=== PATIENT | female | born 1965 | race Caucasian/White ===

== ENCOUNTER → 2023-10-22 16:08 | Outpatient (REF) | payer BC, SELFPAY ==
[2023-10-22 17:35] LABS: % Basophils 1.3 % (0-2); % Eosinophils 2.1 % (0-6); % Immature Granulocytes 0.6 % (0-0.5); % Lymphocytes 15.2 % (20.5-51.1); % Monocytes 12.9 % (1.7-9.3); % Neutrophils 67.9 % (42.2-75.2); Absolute Basophils 0.1 10^3/uL (0-0.2); Absolute Eosinophils 0.1 10^3/uL (0-0.7); Absolute Monocytes 0.9 10^3/uL (0.1-0.6); Absolute Neutrophils 4.6 10^3/uL (1.4-6.5); Hemoglobin 12.3 g/dL (12.0-16.0); Mean Corp Hgb Conc. 33.2 g/dL (33.0-37.0); Mean Corpuscular Volume 87.3 fL (81.0-99.0); Mean Platelet Volume 10.9 fL (7.4-10.4); Nucleated Red Blood Cells % 0 %; Platelet Count 299 10^3/uL (130-400); Red Blood Cell Count 4.24 10^6/uL (4.20-5.40); Red Cell Dist. Width 13.7 % (11.5-14.5); White Blood Cell Count 6.7 10^3/uL (4.8-10.8)
[2023-10-22 17:50] LABS: ALT (SGPT) 18 U/L (0-35); AST (SGOT) 24 U/L (14-36); Alkaline Phosphatase 74 U/L (38-126); Blood Urea Nitrogen 21 mg/dl (7-17); Calcium 10.2 mg/dl (8.4-10.2); Carbon Dioxide 29 mmol/L (22-30); Chloride 98 mmol/L (98-107); Glucose 96 mg/dl (70-99); Potassium 4.5 mmol/L (3.5-5.1); Sodium 138 mmol/L (135-145); Total Bilirubin 0.8 mg/dl (0.2-1.3); Total Protein 7.7 g/dl (6.3-8.2); eGFR > 60.00
[2023-10-25 01:39] LABS: IgG 949 mg/dl (700-1600)
== END ==
LOC: REG 16:08
PROVIDERS: ATTENDING PHYSICIAN Nurse Practitioner Adult Health; FAMILY PHYSICIAN Family Medicine
DX: G35 Multiple sclerosis (principal)
CPT/HCPCS: 36415; 80053; 82784; 85025

== ENCOUNTER 2023-11-13 00:43 | Inpatient (IN) | payer BC, SELFPAY ==
[2023-11-12 21:59] VITALS: BMI 51.9
[2023-11-12 22:10] VITALS: BP 161/80
[2023-11-12 22:44] LABS: % Eosinophils 1.7 % (0-6); % Immature Granulocytes 0.4 % (0-0.5); % Lymphocytes 10.3 % (20.5-51.1); % Monocytes 10.5 % (1.7-9.3); % Neutrophils 76.1 % (42.2-75.2); Absolute Basophils 0.1 10^3/uL (0-0.2); Absolute Eosinophils 0.1 10^3/uL (0-0.7); Absolute Lymphocytes 0.9 10^3/uL (1.2-3.4); Absolute Monocytes 0.9 10^3/uL (0.1-0.6); Absolute Neutrophils 6.3 10^3/uL (1.4-6.5); Hematocrit 37.5 % (37.0-47.0); Hemoglobin 12.6 g/dL (12.0-16.0); Mean Corp Hgb Conc. 33.6 g/dL (33.0-37.0); Mean Corpuscular Hgb 29.2 pg (27.0-31.0); Mean Corpuscular Volume 86.8 fL (81.0-99.0); Mean Platelet Volume 11.1 fL (7.4-10.4); Nucleated Red Blood Cells % 0 %; Platelet Count 267 10^3/uL (130-400); Red Blood Cell Count 4.32 10^6/uL (4.20-5.40); Red Cell Dist. Width 13.3 % (11.5-14.5); White Blood Cell Count 8.2 10^3/uL (4.8-10.8)
[2023-11-12 22:45] LABS: Urine Albumin Negative (Neg - Trace); Urine Bilirubin Negative (Negative); Urine Character Clear (Clear); Urine Color Yellow; Urine Glucose Negative (Negative); Urine Ketone Negative (Negative); Urine Leukocyte Negative (Negative); Urine Nitrite Negative (Negative); Urine Occult Blood 1+ (Negative); Urine Specific Gravity 1.015 (<1.030); Urine Urobilinogen Negative (Neg - 1+); Urine pH 6.5 (5.0-9.0)
--- NOTE | 2023-11-12 22:56 | ED.GENMED ---
History of Present Illness
General
Chief Complaint: Musculo-Skeletal Complaint
Source: patient
Exam Limitations: none
Time Seen by Provider: 11/12/23 22:32
Travel History
Have you had any contact with someone who has COVID-19?: No
Do you have any symptoms of coronavirus? Fever > 100 degrees, chills, cough, shortness of breath, sore throat, loss of taste or smell, muscle aches, or headache?: No
History of Present Illness
History of Present Illness:
This is a 58 year old female that comes in with c/o MS flare. States that for the past few days she has had weakness in her legs. Then today she was in the BR for 2 hours as she was unable to walk or get up. States that she couldn't stand. Patient
called her neurologist (Dr. Abbott) and was told to come to the ER. States that she is also having this right eye black spot like a Gnat. Denies any vision loss. States that she has dizziness occasionally and has had some palpitations. States that
she also rolled her left ankle last Wednesday and was concerned about injury. Denies any fever, chills, chest pain, SOB, abd pain, nausea, vomiting diarrhea, headache, urinary burning.
Past History
Past History
ED Past Medical History: HTN, Other (Multiple sclerosis (relapsing-remitting), anemia, Neuropathy, Hemorrhoids, UTI, Anemia, Numbness arms and leg, ) and Other (LEEP x 2, Pregnancies x 5)
ED Past Surgical History: , Gynecological (ovarian surgeries x 3, Cervix Surgery) and Orthopedic (R shoulder surgery, left ankle fracture with surgery)
Social History
Tobacco: Non-smoker
Alcohol: None
Drug: None
Personal:
Living: with family
Employment: Employed
Family History
Family History: Other (reviewed and Noncontributory)
Review of Systems
Review of Systems
All Other Systems: ROS reviewed and negative except as documented in HPI and ROS
Constitutional: Reports no symptoms; Denies fever or chills
EENT: Reports no symptoms
Respiratory: Reports no symptoms; Denies cough or trouble breathing
Cardiac: Reports no symptoms; Denies chest pain
ABD/GI: Reports no symptoms; Denies abdominal pain, nausea, vomiting or diarrhea
: Reports no symptoms; Denies dysuria, frequency or urgency
Musculoskeletal: Reports joint pain (Left ankle)
Skin: Reports no symptoms
Neurological: Reports weakness (Bilateral lower legs)
Psychiatric: Reports no symptoms
Phy Exam
General Physical Exam
General Presentation: no apparent distress
General age: appears stated age
General Skin: warm and dry
General Habitus: normal
General Mental: alert
General Hydration: appears well hydrated
ENT Exam
ENT Exam: TM's normal, pharynx normal and neck supple
Eye Exam
Eye Exam: EOMI and visual stallworth normal
Cardiovascular Exam
Cardiovascular Exam: regular rate/rhythm, no edema, no murmur and normal peripheral pulses
Pulmonary Exam
Pulmonary Exam: lungs clear, no respiratory distress, no rales, chest non tender, no crackles, no rhonchi, no wheezing and no cough
Gastrointestinal Exam
Gastrointestinal Exam: normal bowel sounds, non tender, soft, no organomegaly, no pulsatile mass and non distended
Musculoskeletal Exam
Musculoskeletal Exam: edema (Feet and lower leg edema +1 pitting) and other (Push pulls equal, Unable to lift legs)
Skin Exam
Skin Exam: normal color, warm/dry, no rash and no petechia
Psychiatric Exam
Psychiatric Exam: normal mood/affect
Course
Orders/Labs/Results
Orders:
Orders
11/12/23 22:38
CMP [Comprehensive Metabolic Panel] Urgent
Complete Blood Count/With Diff Urgent
Urinalysis Reflex To Culture Urgent
Date Specimen was Collected: 11/12/23
Time Specimen was Collected: 22:36
Urine Microscopic Reflex Cult Urgent
11/12/23 22:55
Dexamethasone Sod Phosphate [Decadron] 20 mg IV NOW STA
11/12/23 23:01
Ankle, left 3 view CR [CR Ankle - Left Min 3 Views ] Urgent
Comment:
Reason For Exam: Pain rolled ankle
11/12/23 23:48
COVID-19 Antigen Stat
Source: Nasal Swab
Influenza A+B Rapid Molecular Stat
FRANCISCO Source: Nasal Swab
Specimen Description:
11/12/23 23:49
CR Chest - 2 Views Stat
Comment:
Reason For Exam: SOB
Abnormal Lab Results
11/12/23
22:38
MPV 11.1 H fL
(7.4-10.4)
Absolute Lymphs (auto) 0.9 L 10^3/uL
(1.2-3.4)
Absolute Monos (auto) 0.9 H 10^3/uL
(0.1-0.6)
Neutrophils % 76.1 H %
(42.2-75.2)
Lymphocytes % 10.3 L %
(20.5-51.1)
Monocytes % 10.5 H %
(1.7-9.3)
BUN 22 H mg/dl
(7-17)
Glucose 109 H mg/dl
(70-99)
Calcium 10.4 H mg/dl
(8.4-10.2)
Ur Occult Blood Reflex 1+ A
(Negative)
Urine RBC 3-6 A /HPF
(0-2)
Urine Bacteria (Reflex) Few A
(Negative)
11/12/23 22:38
11/12/23 22:38
Dehydration. Glucose nonfasting. Calcium slightly elevated. Urine negative for infection.
Vital Signs
Initial and Last Documented VS:
Initial Vital Signs
Temp
97.9 F
11/12/23 21:59
Last Documented Vital Signs
Temp Pulse Resp BP Pulse Ox
97.9 F 78 20 163/80 97
11/12/23 21:59 11/12/23 23:00 11/12/23 23:00 11/12/23 23:00 11/12/23 23:00
MDM/Problems Addressed
Differential Diagnosis Includes:
MS flare,
MDM/Problems Addressed:
This is a 58 year old female that comes in with c/o bilateral leg weakness. States that this started a few day ago and then today she was in the BR for 2 hours as she was unable to get up or walk. States that she called her Neurologist and was told
to come to the ER. States that she also has this black spot in the right eye that is like a Gnat flying around
Will get labs and Admit. Will give IV steroids
Had explained to patient that she would be admitted due to her weakness. Hospitalist notified.
Chronic conditions affecting care:
MS
Acute Exacerbation and/or Progression of Chronic Illness:
MS
*Radiology
Radiology exam reviewed: preliminary read by ED provider (Left ankle- Negative for fracture, Hardware noted)
*Pulse Oximetry
Patient hypoxic: no
*EKG
Interpreted by ED Provider?: NA
Rate: EKG- N/A
*Brewing Director Interpretation
Rate: normal
Heart Rate: 89
Rhythm: sinus
*Critical Care Note
Total Time (30-74mins, 75-104mins- exclusive of procedures): Not Applicable
ED Attending Note
-
Portions of this chart may have been created with voice recognition software.� Occasional wrong word or��sound alike� substitutions may have occurred due to the inherent limitations of voice recognition software.
Discharge Plan
Departure
Patient Disposition: Admit
Date of Disposition: 11/12/23
Time of Disposition: 23:25
Admit to: Med/Surg
Presentation/result/management discussed w/ accepting MD/DO: Hospitalist
Patient with high blood pressure during this ER visit?: Yes
Condition: Good
Covid-19: Not Applicable
Discharge Problem:
Weakness, Multiple sclerosis exacerbation
Prescriptions:
No Action
dalfampridine [Ampyra] 10 MG tablet extended release 12 hr
10 mg PO BID
Ocrevus 300 MG/10 ML solution
600 mg IV [id number]
nifedipine 30 MG tablet extended release
30 mg PO DAILY
ascorbic acid (vitamin C) [Vitamin C] 500 MG tablet
500 mg PO HS
cholecalciferol (vitamin D3) 1,000 UNITS tablet
5,000 units PO DAILY
gabapentin 300 mg Capsule
300 mg PO HS
labetalol 300 mg Tablet
300 mg PO BID
sennosides [Senna Laxative] 8.6 mg Tablet
17.2 mg PO HS Qty: 10 0RF
tramadol 50 mg Tablet
25 mg PO [id number] PRN (Reason: mod to severe pain) Qty: 10 0RF
acetaminophen [Pain Relief ES (acetaminophen)] 500 mg Tablet
1,000 mg PO TID Qty: 10 0RF
docusate sodium 100 mg Capsule
100 mg PO BID Qty: 10 0RF
ferrous sulfate [iron] 325 mg (65 mg iron) Tablet
325 mg PO DAILY
baclofen 10 mg tablet
10 mg PO PRN PRN (Reason: as needed)
Interventions
Interventions:
*Risk Screen - Suicide Last Done: 11/12/23 21:59
*General Assessment Last Done: 11/12/23 21:59
*Neglect/Abuse Screening Last Done: 11/12/23 21:59
ED- Fall Risk Assessment Last Done: 11/12/23 22:06
ED-Musculoskeletal Assessment Last Done: 11/12/23 22:04
Discharge Date and Time
Print Language: HUNGARIAN
[2023-11-12 23:00] VITALS: BP 163/80
[2023-11-12 23:03] LABS: ALT (SGPT) 20 U/L (0-35); AST (SGOT) 26 U/L (14-36); Alkaline Phosphatase 66 U/L (38-126); Blood Urea Nitrogen 22 mg/dl (7-17); Calcium 10.4 mg/dl (8.4-10.2); Carbon Dioxide 28 mmol/L (22-30); Chloride 102 mmol/L (98-107); Estimated Creatinine Clearance 89 ml/min; Glucose 109 mg/dl (70-99); Potassium 4.5 mmol/L (3.5-5.1); Sodium 137 mmol/L (135-145); Total Bilirubin 0.6 mg/dl (0.2-1.3); Total Protein 7.9 g/dl (6.3-8.2); eGFR > 60.00
[2023-11-12 23:05] LABS: Urine Bacteria Few (Negative); Urine Squamous Cell 0-2 /LPF (Few); Urine White Cell 0-2 /HPF (0-5)
[2023-11-12] MEDS: DECADRON 20 MG IV (23:09)
--- NOTE | 2023-11-12 23:27 | HPS.HSE ---
Family Physician
-
Family Physician:
Chief Complaint
-
Weakness x 1week
History of Present Illness
58yo F with PMH Relapsing Remitting MS (chronic mild right leg>left leg weakness), Neuropathy, HTN, AWILDA, Obesity who presents to ER for weakness complaint. She reports ongoing weakness from baseline over the last 1 week. States she normally
ambulates with walker but has been more dependent on it. In lats 2 months she has had 4 falls. On wednesday she fell and hit her left ankle (hx left ankle fx s/p repair a few years ago noted). Today she was so weak she could not get up from the
bathroom prompting evaluation. Also reports a black spot over 1/4 of her right eye. Denies history of internuclear ophthalmoplegia. Had a video conference with her Neurologist Dr. Abbott but did not report these findings to her. Denies F/C,
Dizziness/LH, CP, palps, wheezing, cough, sob, abd pain, n/v/d/c, dysuria, calf or leg pain. Denies recent med changes.
ER course: Pt presents with BP 163/80, other V.S.S. Basic labs relatively unremarkable. Ca 10.4. UA few bact 0-2 WBC. Ankle XR on personal review with hardware in place, no acute fx/dislocation (official read pending). S/P 20mg IV dexamethasone in
ER.
Medical History
Past Medical History
Past Medical History: Reports Other
Additional Past Medical History:
Relapsing-Remitting MS
Hypertension
Obesity
AWILDA
Chronic Anemia
Past Surgical History: Reports Other
Additional Past Surgical History:
Tubal Ligation
Right Shoulder Surgery
Colposcopy
Exploratory Laparoscopy
Left Ankle ORIF
Social History
Tobacco: Non-smoker
Alcohol: None
Drug: None
Family History
Family History: Other (Father: CAD. Denies known MS or other immunological family history. )
Allergies / Home Medications
Allergies reflects when Allergies were last updated in [facility].
Home Medications with original date entered in [facility]
Allergy/Medication List:
Allergies
Allergy/AdvReac Type Severity Reaction Status Date / Time
morphine Allergy Nausea / Verified 03/15/23 18:51
Vomiting
oxycodone [From Percocet] Allergy Nausea / Verified 03/15/23 18:51
Vomiting
Home Medications
dalfampridine 10 mg tablet,extended release,12 hr (Ampyra) 10 mg PO BID MS 05/26/21
ocrelizumab 30 mg/mL intravenous solution (Ocrevus) 600 mg IV [id number] MS 05/26/21
nifedipine 30 mg tablet,extended release 30 mg PO DAILY Heart disease/condition 12/16/21
ascorbic acid (vitamin C) 500 mg tablet (Vitamin C) 500 mg PO HS Supplement 06/30/22
cholecalciferol (vitamin D3) 25 mcg (1,000 unit) tablet 5,000 units PO DAILY Supplement 06/30/22
gabapentin 300 mg capsule 300 mg PO HS Neurological Condition 03/16/23
labetalol 300 mg tablet 300 mg PO BID Blood Pressure 03/16/23
baclofen 10 mg tablet 10 mg PO PRN PRN as needed 11/12/23
ferrous sulfate 325 mg (65 mg iron) tablet (iron) 325 mg PO DAILY 11/12/23
acetaminophen 500 mg tablet (Pain Relief Extra Strength (acetaminophen)) 1,000 mg PO TID PRN Pain 11/13/23
Review of Systems
-
A 12 point ROS was completed and negative except as noted: Yes
Physical Exam
Vital Signs
Vital Signs
Temp Pulse Resp BP Pulse Ox
97.9 F 78 20 163/80 97
11/12/23 21:59 11/12/23 23:00 11/12/23 23:00 11/12/23 23:00 11/12/23 23:00
Physical Exam
General: Well Developed, Well Nourished and No Apparent Distress
HEENT: NormoCephalic, Moist mucous membranes and Atraumatic
Respiratory: Clear
Cardiac: S1/S2 and Regular Rhythm; No Murmur or Rub
GI: Soft, Non Tender, Non Distended, Normal Bowel Sounds and Other (obese); No Organomegaly
Rectal: Deferred by Provider
Musculoskeletal: No Clubbing, No Cyanosis and No Edema
Skin: No Rash
Neuro: Awake, Alert, Oriented, AO x 3 and Other (MSK UE 5/5 throughout. MSK RLE 2/5. MSK LLE 3/5. Sensation grossly intact, mildly diminished (chronic) in LE)
Hematologic/Lymphatic: No Lymphadenopathy
Psych: Calm
Laboratory Results
-
11/12/23 22:38
11/12/23 22:38
Laboratory Results
Total Bilirubin 0.6 mg/dl (0.2-1.3) 11/12/23 22:38
AST 26 U/L (14-36) 11/12/23 22:38
ALT 20 U/L (0-35) 11/12/23 22:38
Alkaline Phosphatase 66 U/L (38-126) 11/12/23 22:38
Data Reviewed
-
Diagnostic Radiology: Image Personally Visualized and interpreted
Lab Data: Labs Reviewed by me
Old Records: Reviewed
Impression/Plan
-
B/L Leg Weakness / Suspected MS Flare
- Pt presents with ambulatory dysfunction, falls, generalized weakness (acute on Chronic R>L leg weakness increased) and Right Eye Visual Field Deficit
- No organic etiologies identified at this time. UA few bact, 0-2 WBC. Will obtain CXR and COVID/Flu for completeness\\
- Basic labs unremarkable. Check TSH/B12 levels.
- Suspect right occular complaint may be 2/[address]. Will obtain CT brain stat for completeness.
- Defer further imaging including MRIs to neuro recs
- Q4h neurochecks.
- S/P 20mg IV dexmethasone in ER. Discussed with neurology. Recommending 1000mg Solumedrol daily in AM
- Currently on Ocrevus Q6mo last received 08/27 and Ampyra 20mg daily
- Neuroconsult / PT / OT
Left Ankle Pain
- Personal review XR without obvious fx/dislocation - follow official read
- Continue prn tylenol
- PT/OT
HTN
- BP 163/80. Late for tonight labetalol. Resume home labetalol, nifedipine. Trend for improvement.
Spasticity
- Continue home baclofen and gabapentin
Morbid Obesity due to excess calories and poor exercise capacity
- Encourage healthy diet and activity as tolerated with goal of weight loss / stability.
Diet: Regular
DVT PPx: Lovenox
Code Status: Full
[2023-11-13] VITALS (9 sets, daily range): BP systolic 131–173; BP diastolic 77–96; BMI 51.1; BMI 51.0
[2023-11-13 00:34] LABS: COVID-19 Antigen Negative (Negative)
[2023-11-13] MEDS: TYLENOL 1000 MG PO ×4 (02:30→22:08)
[2023-11-13] MEDS: NEURONTIN 300 MG PO ×2 (02:30→22:08)
[2023-11-13] MEDS: TRANDATE 300 MG PO ×3 (02:30→22:09)
--- NOTE | 2023-11-13 02:45 | PTCARENOTE ---
Patient arrived from ED via stretcher, slid to bed from stretcher with assist of 3 person. Patient alert and oriented, c/o pain/spasms to legs and significant weakness which she states is what ultimately brought her in from home. Patient arrived
with purewick in place and is requesting to keep at this time - changed and maintained this shift. Patient appears to be incontinent of large amounts of urine with urgency. initiated on crate maker #5 - NSR with BBBC present, HR 70s. BPs
elevated since admission. Call simons within reach, patient verbalizes proper use of call simons if needed. Will monitor.
--- NOTE | 2023-11-13 07:14 | CON.NEURO4 ---
Consultation - Neurology 4
-
CONSULTING PHYSICIAN: Eusebio Paulino
REFERRING PHYSICIAN: ER
DICTATED BY: Eusebio Paulino
DATE/TIME OF REQUEST: 11/13/23
DATE/TIME OF CONSULTATION: 11/13/23
Reason for Consultation: Lower extremity weakness and worsening gait, history of multiple sclerosis
History of Present Illness:
Patient is a 58-year-old woman with a past medical history of obesity, relapsing remitting multiple sclerosis presented to hospital after finding herself in the bathroom not able to get up as well as a couple weeks of worsening ambulatory
dysfunction and multiple falls over the past 2 months. Had some minor ankle pain mostly on the left and had x-ray of this in the ER.
Patient reports no recent illnesses of fever sore throat cough rhinitis or congestion no abdominal pain nausea vomiting or diarrhea. She does urinate frequently and so often that this sometimes can lead her to need to urinate every couple of hours
at night but no dysuria recently. She is planning on urology visit in the outpatient setting.
Patient has been on ocrelizumab for control of multiple sclerosis in the outpatient setting with no complications with results of this.
Does report some stressors recently given her around 4 years ago at this time and sleep deprivation with the urinary issues. She does have a significant headache today but no photophobia or nausea. No changes in medications
recently.
At baseline she usually ambulates with a walker and for longer distances will use a wheelchair. Notes that over the past 2 months she has had falls than usual.
Past Medical History: Relapsing remitting multiple sclerosis, obesity, hypertension, anemia
Surgical History: C section, tubal ligation, right shoulder surgery, left ankle ORIF, colposcopy, exploratory laparoscopy
Family History:Reviewed and non-contributory
Social History: Patient lives at home with family and is a , no tobacco or alcohol use no recreational drugs
Review of Symptoms:
Patient denies any fever, headache, chest pain, shortness of breath, GI or symptoms.
Physical Exam:
Middle-aged woman no apparent distress well-nourished well-groomed no signs of head or neck trauma, neck supple no masses full range of motion heart rate regular breathing unlabored abdomen is obese soft nontender, lower extremity edema is present
bilaterally with no rash
Neurologic Examination:
Mental status is unremarkable
Cranial nerve examination shows normal cranial nerves II through XII
Motor examination shows normal bulk and tone no abnormal movements or rigidity or parkinsonism, 5/5 shoulder abduction arm flexion bilaterally. Distal ankle strength for dorsiflexion plantarflexion 5/5 bilaterally. Some limitation in effort due to
obesity and edema of the legs bilaterally, leg strength testing shows 3/5 effort bilaterally of hip flexion, 4/5 hip abduction bilaterally.
Neuro Imaging:
CT head non contrast unremarkable
Impressions
Worsening ambulatory dysfunction on top of significant baseline amatory dysfunction. History relapsing relating to multiple sclerosis on Ocrelizumab, involvement in both brain and spine. Suspect this is acute on chronic gait dysfunction or a
pseudoflare from stressors and sleep deprivation, significant headache, but new flare of multiple sclerosis is on the differential and should be evaluated for. No strong evidence of serious new metabolic abnormality or infection.
Recommendations:
1. Give 1 dose 1000 mg methylprednisolone once this morning
2. Check MRI of the lumbar spine and thoracic spine with and without contrast
3. Continue gabapentin and Dalfimpiridine
4. Tylenol 1000 mg TID for headache
5. Continue PRN baclofen
6. PT/OT evaluations
7. Supportive care o therwise
Will follow
Discussed patient care with: Patient
[2023-11-13] MEDS: LOVENOX 60 MG SC ×2 (08:02→22:09)
[2023-11-13] MEDS: VITAMIN D3 (cholecalciferol) 25 MCG PO (08:03)
[2023-11-13] MEDS: PROCARDIA XL (EXTENDED RELEASE) 30 MG PO (08:03)
[2023-11-13] MEDS: SOLU-MEDROL 258 MG IV (08:03)
[2023-11-13] MEDS: FEOSOL 325 MG PO (08:03)
[2023-11-13 09:02] LABS: % Basophils 0.3 % (0-2); % Eosinophils 0.2 % (0-6); % Immature Granulocytes 0.6 % (0-0.5); % Monocytes 0.9 % (1.7-9.3); Absolute Lymphocytes 0.3 10^3/uL (1.2-3.4); Absolute Monocytes 0.1 10^3/uL (0.1-0.6); Absolute Neutrophils 6.2 10^3/uL (1.4-6.5); Hematocrit 38.6 % (37.0-47.0); Hemoglobin 13.2 g/dL (12.0-16.0); Mean Corp Hgb Conc. 34.2 g/dL (33.0-37.0); Mean Corpuscular Hgb 28.9 pg (27.0-31.0); Mean Corpuscular Volume 84.6 fL (81.0-99.0); Nucleated Red Blood Cells % 0 %; Red Blood Cell Count 4.56 10^6/uL (4.20-5.40); Red Cell Dist. Width 13.2 % (11.5-14.5); White Blood Cell Count 6.6 10^3/uL (4.8-10.8)
[2023-11-13] MEDS: TYLENOL PO (09:31)
[2023-11-13 11:02] LABS: Blood Urea Nitrogen 19 mg/dl (7-17); Calcium 10.3 mg/dl (8.4-10.2); Carbon Dioxide 20 mmol/L (22-30); Chloride 106 mmol/L (98-107); Estimated Creatinine Clearance > 125 ml/min; Glucose 152 mg/dl (70-99); Potassium 4.8 mmol/L (3.5-5.1); Sodium 136 mmol/L (135-145); eGFR > 60.00
[2023-11-13 11:09] LABS: TSH 0.22 uIU/ml (0.47-4.68)
[2023-11-13 11:28] LABS: Vitamin B12 500 pg/ml (239-931)
--- NOTE | 2023-11-13 12:38 | CM ---
Initial assessment was completed at bedside.
Pt is a 58yr old female admitted with an MS Flare.
Pt at baseline lives with her brother and mother in a multi level home with a first floor bed/bath.
Per pt. she is mostly independent at baseline with mobility and ADLs. when she is having a 'bad day' her children that live close by come and provide assistance where needed.
Pt uses a walker within the home, but has a wheelchair and an electric scooter for when out of the house. pt also has and uses a shower chair with arms.
Pt has uses [facility] and has been to [facility] and [facility] in the past.
Per pt, she was about to make a call this upcoming Wednesday to her Neurologist for a [facility] referral for PT/OT before coming to the hospital instead.
PCP; Nemesio Watters
Pharm; [facility]
PLAN; Home with [facility]
--- NOTE | 2023-11-13 13:39 | W.PN.HOSP.TC ---
Today's Communication/Plan
-
see bold
Assessment / Plan
Assessment / Plan
Gen: NAD, AAOx3.
Eyes: EOMI, PERRLA, no scleral icterus.
Neck: supple.
CV: RRR, +S1/S2, no m/r/g.
Resp: CTAB, no rales, wheezes, or rhonchi.
Abd: +BS, soft, NT, ND
Skin: No rashes.
Neuro: CN 2-12 intact
Psych: Normal mood and affect.
L ankle Xray: No acute abnormalities. Postoperative changes consistent with prior repair of bimalleolar fracture
CT brain: There are no acute intracranial abnormalities. There is diffuse cortical atrophy with nonspecific white matter changes.
CXR: No active cardiopulmonary disease.
B/L Leg Weakness due to suspected MS Flare:
-presented with ambulatory dysfunction, falls, generalized weakness (acute on Chronic R>L leg weakness increased) and Right Eye Visual Field Deficit
-COVID/flu NEG
-appreciate neuro
-check MRI L and T spines
-s/p 20mg IV Decardon in ER followed by 1g IV solumedrol today
-Currently on Ocrevus Q6mo last received 08/27 and Ampyra 20mg daily
Other problems:
Left Ankle Pain: XR withouf fx, PT/OT
Essential HTN: cont cont BB/CCB
Spasticity: Continue home baclofen and gabapentin
Morbid Obesity due to excess calories: Encourage weight loss. Affects all aspects of care
FULL/Lovenox
Anticipated Discharge: 24 - 48 hours
Subjective/Interval History
-
Date of Service: November 13, 2023
No new complaints.
Objective Data
-
Labs:
Laboratory Results
11/13/23 11/13/23
08:18 08:19
WBC 6.6
Hgb 13.2
Hct 38.6
Plt Count
Sodium 136
Potassium 4.8
Chloride 106
Carbon Dioxide 20 L
BUN 19 H
Creatinine 0.5 L
Glucose 152 H
Calcium 10.3 H
Vital Signs:
Vital Signs
Temp Pulse Resp BP Pulse Ox
97.7 F 102 18 149/89 95
11/13/23 11:00 11/13/23 11:00 11/13/23 11:00 11/13/23 11:00 11/13/23 11:00
I&O
11/12/23 11/13/23 11/14/23
06:59 06:59 06:59
Intake Total 480 / 480
Output Total 1000 / 1000
Balance -520 / -520
[2023-11-13] MEDS: VITAMIN C 500 MG PO (22:08)
[2023-11-14] VITALS (8 sets, daily range): BP systolic 141–184; BP diastolic 78–95; PULSE 92; BMI 51.9
--- NOTE | 2023-11-14 07:54 | W.PN.NEURO.1 ---
Today's Communication / Plan
-
-Would give 1 further additional day of IV steroids today with no further steroids after today
-Physical therapy evaluation, patient interested in home PT if possible
-Continue her existing as needed baclofen, scheduled dalfampridin, gabapentin
-Patient plans to seek outpatient urology evaluation
-Consider compression stockings, conservative measures for mild lower extremity edema, encouraged weight loss
-No further MRI imaging felt warranted
Will follow as needed, signing off call with questions and concerns
Neuro Assessment/Plan
Assessment
58-year-old woman with a past no history of relapsing remitting multiple sclerosis with lesions involving the brain and the spine maintained on oculus Mab presents to hospital with not being able to get up from her bathroom and had had worsening
gait function over the past couple weeks with increased amount of falls over the past 2 months.
No obvious severe metabolic derangements on lab
Patient did have some stressors as her of her occurred around 4 years ago at this day
Has also had significant sleep deprivation with some frequent urination
Additionally had a significant headache yesterday none migrainous which is now improved
Would deem this a pseudo flare of multiple sclerosis given no new enhancing lesions on the spine MRI, probably multifactorial due to acute on chronic gait dysfunction and obesity, lower extremity edema, as well as mild metabolic (sleep deprivation)
and psychological stressors
Subjective/Objective
Subjective Data
Date of Service: November 14, 2023
No acute events, somewhat better strength in the legs, headache has improved to minor amount, no speech difficulty, numbness, or hand or arm weakness
Objective Data
Vital Signs
Temp Pulse Resp BP Pulse Ox
97.9 F 87 20 164/87 97
11/14/23 07:00 11/14/23 07:00 11/14/23 07:00 11/14/23 07:00 11/14/23 07:00
Lab Results
11/13/23 08:19
11/13/23 08:18
Sodium 136 mmol/L (135-145) 11/13/23 08:18
Potassium 4.8 mmol/L (3.5-5.1) 11/13/23 08:18
BUN 19 mg/dl (7-17) H 11/13/23 08:18
Glucose 152 mg/dl (70-99) H 11/13/23 08:18
Calcium 10.3 mg/dl (8.4-10.2) H 11/13/23 08:18
Vitamin B12 500 pg/ml (239-931) 11/13/23 08:18
Patient Allergies
morphine Allergy (Verified 03/15/23 18:51)
Nausea / Vomiting
oxycodone [From Percocet] Allergy (Verified 03/15/23 18:51)
Nausea / Vomiting
Review of Systems
-
History Source: Patient
All other systems: Reviewed and negative
Constitutional: No Symptoms
EENT: No Symptoms Reported
Respiratory: No Symptoms
Cardiac: No Symptoms
Abdomen/GI: No Symptoms
Genitourinary: No Symptoms
Musculoskeletal: No Symptoms
Skin: No Symptoms
Neuro: Headache and Weakness
Endocrine: No Symptoms
Hematologic / Lymphatic: No Symptoms
Allergy / Immunology: No Symptoms
Physical Exam
-
General: No Apparent Distress and Obese
Eyes: No Ptosis
HEENT: Normocephalic
Neck: No Bruits Bilaterally
Respiratory: Clear to Auscultation
Cardiac: Regular Rhythm
GI: Normal Bowel Sounds
Skin: Unremarkable
Extremities: No Clubbing
Psych: Intact Judgement/Insight
Extended Neurological Exam
Attention Span & Concentration: Awake, Alert and Interactive
Memory: Able to Recall
Tremor: Hand Tremor Absent
Involuntary Movement: None
Speech: Quality Unremarkable and Quantity Unremarkable; Negative Expressive Aphasia, Receptive Aphasia or Dysarthric
Cranial Nerve II: Left Eye: Pupillary Reactivity Unremarkable, Pupillary Size Unremarkable and Visual Thorpe Intact
Cranial Nerve II: Right Eye: Pupillary Reactivity Unremarkable, Pupillary Size Unremarkable and Visual Thorpe Intact
Cranial Nerve VII: Facial Symmetry: Normal Facial Symmetry
Muscle Strength, Overall: Other (Leg strength hip flexion mildly improved 4-/5 hip flexion briefly, ankle dorsiflexion/plantarflexion 5/5 bilalterally)
Muscle Bulk & Tone: Bulk Unremarkable
Pronator Drift: No Drift in Upper Extremities
Babinski Sign: Absent Bilaterally
Data Reviewed
-
MRI Thoracic Spine: Report Reviewed and Image Reviewed
MRI Lumbar Spine: Report Reviewed and Image Reviewed
Labs: Report Reviewed
[2023-11-14] MEDS: TRANDATE 300 MG PO ×2 (09:27→20:06)
[2023-11-14] MEDS: FEOSOL 325 MG PO (09:27)
[2023-11-14] MEDS: PROCARDIA XL (EXTENDED RELEASE) 30 MG PO (09:27)
[2023-11-14] MEDS: LOVENOX 60 MG SC ×2 (09:27→20:06)
[2023-11-14] MEDS: VITAMIN D3 (cholecalciferol) 25 MCG PO (09:27)
[2023-11-14] MEDS: SOLU-MEDROL 258 MG IV (09:36)
--- NOTE | 2023-11-14 12:15 | W.PN.HOSP.TC ---
Today's Communication/Plan
-
Physiatry eval
Steroids today
PT OT
Rehab
Assessment / Plan
Assessment / Plan
58-year-old female with history of relapsing remitting multiple sclerosis presented to the hospital with worsening ambulatory dysfunction and multiple falls in the past 2 months. She denies any fever, diarrhea, URI.
L ankle Xray: No acute abnormalities. Postoperative changes consistent with prior repair of bimalleolar fracture
CT brain: There are no acute intracranial abnormalities. There is diffuse cortical atrophy with nonspecific white matter changes.
CXR: No active cardiopulmonary disease.
MRI of the thoracic and Lumbar spine-Slightly progressed nonenhancing demyelinating lesions scattered throughout the thoracic spinal cord.Severe spinal canal stenosis at L4-5, slightly progressed.Trace bilateral pleural effusions.
Partially visualized left thyroid lobe nodule measures up to 1.1 cm. Consider outpatient workup with dedicated thyroid ultrasound if not previously performed.
On examination CVS: S1-S2 normal
Chest: CTA B/L
Abdomen: Soft, NT / Bowel sounds present
Extremities: No edema, normal pulses
normal cranial nerves. Proximal muscle weakness noted,
#B/L Leg Weakness due to suspected MS Flare:
-presented with ambulatory dysfunction, falls, generalized weakness (acute on Chronic R>L leg weakness increased) and Right Eye Visual Field Deficit
-COVID/flu NEG
-appreciate neuro
-check MRI L and T spines
-s/p 20mg IV Decadron in ER followed by 1g IV Solumedrol 11/13/23 and 11/14/23
-Currently on Ocrevus Q6mo last received 08/27
-Continue Gabapentin and Ampyra 20mg daily
-Continue Baclofen
-PT/OT
-Physiatry eval for Acute rehab recommendations.(Consulted
#Depression- Pt requests Psyche eval.
She is not suicidal or homicidal.
Feels no purpose to life
#Thyroid nodule- OP USS
Pt aware
#Left Ankle Pain: XR without fx, PT/OT
#Essential HTN: cont cont BB/CCB
#Spasticity: Continue home baclofen and gabapentin
#Severe spinal canal stenosis
#Morbid Obesity due to excess calories: Encourage weight loss.
#FULL CODE
#Lovenox for DVT Prophylaxis
Anticipated Discharge: Within 24 hours
Subjective/Interval History
-
Date of Service: November 14, 2023
Objective Data
-
Vital Signs:
Vital Signs
Temp Pulse Resp BP Pulse Ox
97.8 F 84 18 164/91 95
11/14/23 11:00 11/14/23 11:00 11/14/23 11:00 11/14/23 11:00 11/14/23 11:00
I&O
11/13/23 11/14/23 11/15/23
06:59 06:59 06:59
Intake Total 480 / 480 1620 / 1620
Output Total 1000 / 1000 1700 / 1700
Balance -520 / -520 -80 / -80
--- NOTE | 2023-11-14 14:10 | CS.PSYCHR ---
Consult Summary - Psychiatry
-
Psychiatry consult for depression. 58 yo female with long history of MS admitted 11/11 for weakness. Patient admits to worsening depressive symptoms including amotivation, feelings of guilt, hopelessness and loss of purpose, difficulty sleeping and
increased anger/frustration with herself. She denies active or passive suicidal ideations. She denies manic or psychotic history. She denies substance abuse. Stressors include her health condition and difficulty doing things she used to be able to.
She also continues to struggle with the loss of her 4 years ago. She states she does not want to take psychiatric medications at this time though education on this option was provided. We also discussed options for nonpharmacological
interventions including individual/group therapy which she is open to. She states she is technologically savvy and can find and online program. We also discussed option for higher levels of care and how to pursue them if condition worsens in the
future and she needs additional support
MSE- obese, sitting in chair, cooperative, good eye contact, fluent speech. depressed mood and congruent affect. denies SI. Denies HI/AVH. no delusions. fully oriented. fair insight/judgement
PMH- MS diagnosed 1995, Hypertension, Obesity, AWILDA, Chronic Anemia
Social history- lives with brother and mom. has 4 adult children and 2 grandchildren. , then remarried. second 4 years ago
Past psych history- denies past mental health treatment
Family history- suspects undiagnosed mental health issues mother; son with mental health treatment for unspecified conditions
A/P- 58 yo female with unspecified depressive disorder. Does not want psychiatric medications at this time. agreeable to pursuing individual therapy on her own once discharged. aware of option for crisis/higher levels of care if needed in the
future. Psychiatry will sign off. please contact team with further questions or concerns.
[2023-11-14] MEDS: TYLENOL 1000 MG PO (20:20)
[2023-11-14] MEDS: NEURONTIN 300 MG PO (21:25)
[2023-11-14] MEDS: VITAMIN C 500 MG PO (21:25)
[2023-11-15] VITALS (7 sets, daily range): BP systolic 116–171; BP diastolic 68–96; BMI 51.8
--- NOTE | 2023-11-15 06:29 | W.PN.HOSP.TC ---
Today's Communication/Plan
-
PMR eval
monitor Calcium
follow up AM PTH Vit D levels
cont PT/OT
Assessment / Plan
Assessment / Plan
Physical Exam
General: No acute distress, appears comfortable at this time.
CVS: S1-S2 normal
Chest: CTA B/L
Abdomen: Soft, NT / Bowel sounds present
Extremities: No edema, normal pulses
Neuro: AOx3
58-year-old female with history of relapsing remitting multiple sclerosis presented to the hospital with worsening ambulatory dysfunction and multiple falls in the past 2 months. She denies any fever, diarrhea, URI.
L ankle Xray: No acute abnormalities. Postoperative changes consistent with prior repair of bimalleolar fracture
CT brain: There are no acute intracranial abnormalities. There is diffuse cortical atrophy with nonspecific white matter changes.
CXR: No active cardiopulmonary disease.
MRI of the thoracic and Lumbar spine-Slightly progressed nonenhancing demyelinating lesions scattered throughout the thoracic spinal cord.Severe spinal canal stenosis at L4-5, slightly progressed.Trace bilateral pleural effusions.
Partially visualized left thyroid lobe nodule measures up to 1.1 cm. Consider outpatient workup with dedicated thyroid ultrasound if not previously performed.
#B/L Leg Weakness due to suspected MS Flare:
-presented with ambulatory dysfunction, falls, generalized weakness (acute on Chronic R>L leg weakness increased) and Right Eye Visual Field Deficit
-COVID/flu NEG
-appreciate neuro eval
-MRI L and T spines appreciated slightly progressed scattered demyelinating lesions, severe spinal stenosis L4-L5, partial visualization Left Thyroid lobe nodule 1.1 cm
-s/p 20mg IV Decadron in ER followed by 1g IV Solumedrol 11/13/23 and 11/14/23, currently off steroids as per neuro recc's
-Currently on Ocrevus Q6mo last received 08/27
-Continue Gabapentin and Ampyra 20mg daily
-Continue Baclofen
-PT/OT
-Physiatry eval for Acute rehab recommendations. Consulted, pending eval
Mild Hypercalcemia
#Depression
denies suicidal or homicidal ideation
Psych eval, per pt's request, appreciated
#Thyroid nodule- OP USS
Pt aware
#Left Ankle Pain: XR without fx, PT/OT
#Essential HTN: cont cont BB/CCB
#Spasticity: Continue home baclofen and gabapentin
#Severe spinal canal stenosis
#Morbid Obesity due to excess calories: Encourage weight loss.
#FULL CODE
#Lovenox for DVT Prophylaxis
I spent a total of 50 minutes with the patient or on the floor. More than 50% of this time involved counseling and coordination of care.
Anticipated Discharge: 24 - 48 hours
Subjective/Interval History
-
Date of Service: November 15, 2023
Seen and examined at bedside in no acute distress sitting up comfortably in bed. Son Kraig present during evaluation. Denies new acute issues at this time.
Objective Data
-
Labs:
Laboratory Results
11/15/23
06:04
Sodium Pending
Potassium Pending
Chloride Pending
Carbon Dioxide Pending
BUN Pending
Creatinine Pending
Glucose Pending
Calcium Pending
Vital Signs:
Vital Signs
Temp Pulse Resp BP Pulse Ox
98.3 F 93 16 154/90 95
11/15/23 02:54 11/15/23 02:54 11/15/23 02:54 11/15/23 03:00 11/15/23 02:54
I&O
11/13/23 11/14/23 11/15/23
06:59 06:59 06:59
Intake Total 480 / 480 1620 / 1620 1860 / 1860
Output Total 1000 / 1000 1700 / 1700 400 / 400
Balance -520 / -520 -80 / -80 1460 / 1460
[2023-11-15 06:52] LABS: Blood Urea Nitrogen 22 mg/dl (7-17); Calcium 10.5 mg/dl (8.4-10.2); Carbon Dioxide 23 mmol/L (22-30); Chloride 107 mmol/L (98-107); Estimated Creatinine Clearance > 125 ml/min; Glucose 133 mg/dl (70-99); Potassium 4.9 mmol/L (3.5-5.1); Sodium 141 mmol/L (135-145); eGFR > 60.00
[2023-11-15] MEDS: VITAMIN D3 (cholecalciferol) 25 MCG PO (07:49)
[2023-11-15] MEDS: TRANDATE 300 MG PO ×2 (07:49→20:09)
[2023-11-15] MEDS: FEOSOL 325 MG PO (07:50)
[2023-11-15] MEDS: PROCARDIA XL (EXTENDED RELEASE) 30 MG PO (07:50)
[2023-11-15] MEDS: LOVENOX 60 MG SC ×2 (08:03→20:10)
[2023-11-15] MEDS: TYLENOL 1000 MG PO (08:03)
[2023-11-15 16:36] LABS: Glucose - Point of Care 151 mg/dl (70-99)
[2023-11-15 18:46] LABS: TSH Reflex To Free T4 0.14 uIU/ml (0.47-4.68)
[2023-11-15 19:19] LABS: Free T4 1.21 ng/dl (0.78-2.19)
[2023-11-15] MEDS: NEURONTIN 300 MG PO (21:23)
[2023-11-15] MEDS: VITAMIN C 500 MG PO (21:23)
[2023-11-16] VITALS (7 sets, daily range): BP systolic 127–158; BP diastolic 68–92; PULSE 87; O2SAT 97; BMI 51.7
[2023-11-16 06:40] LABS: Hematocrit 36.8 % (37.0-47.0); Hemoglobin 12.1 g/dL (12.0-16.0); Mean Corp Hgb Conc. 32.9 g/dL (33.0-37.0); Mean Corpuscular Hgb 29.1 pg (27.0-31.0); Mean Corpuscular Volume 88.5 fL (81.0-99.0); Mean Platelet Volume 10.5 fL (7.4-10.4); Platelet Count 241 10^3/uL (130-400); Red Blood Cell Count 4.16 10^6/uL (4.20-5.40); Red Cell Dist. Width 14.2 % (11.5-14.5); White Blood Cell Count 9.9 10^3/uL (4.8-10.8)
[2023-11-16 07:02] LABS: Blood Urea Nitrogen 22 mg/dl (7-17); Calcium 9.7 mg/dl (8.4-10.2); Carbon Dioxide 24 mmol/L (22-30); Chloride 109 mmol/L (98-107); Estimated Creatinine Clearance 114 ml/min; Glucose 87 mg/dl (70-99); Magnesium 2.1 mg/dl (1.6-2.3); Phosphorus 3.8 mg/dl (2.5-4.5); Potassium 4.5 mmol/L (3.5-5.1); Sodium 138 mmol/L (135-145); eGFR > 60.00
[2023-11-16 07:31] LABS: Vitamin D, 25-OH*** 67.6 ng/mL (30-80)
--- NOTE | 2023-11-16 07:57 | CON.MD ---
Documented by User: Daphne Contreras PA-C 11/17/23 09:11
Consultation - Medical
-
Referring Provider: Anthony Salamanca
Chief Complaint: Ambulatory dysfunction
History of Present Illness: 58-year-old right-hand dominant female with PMH (Relapsing remitting multiple sclerosis, AWILDA, neuropathy, hypertension, anemia, bilateral carpal tunnel syndrome, left ankle fracture, morbid obesity) presented to
[facility] on 11/12/2023 with report of 1 week history of increased muscle weakness and difficulty walking. She reports 4 falls in the past 2 months. Normally ambulates with walker but has been more dependent on it. On wednesday, she fell
and hit her left ankle with h/o ORIF. She was so weak she could not get up from the bathroom prompting evaluation. Also reports a black spot over 1/4 of her right eye. Denies history of internuclear ophthalmoplegia. Weakness worse on the right lower
extremity than the left. She also has generalized worsening weakness and left ankle pain.
Thoracic MRI
Slightly progressed nonenhancing demyelinating lesions scattered throughout the thoracic spinal cord. Severe spinal canal stenosis at L4-5, slightly progressed. Trace bilateral pleural effusions.Partially visualized left thyroid lobe nodule measures
up to 1.1 cm. Consider outpatient workup with dedicated thyroid ultrasound if not previously performed.
Lumbar MRI
Slightly progressed nonenhancing demyelinating lesions scattered throughout the thoracic spinal cord. Severe spinal canal stenosis at L4-5, slightly progressed.
CT of Head
There are no acute intracranial abnormalities.
There is diffuse cortical atrophy with nonspecific white matter changes as described above.
Xray of Ankle
No acute abnormalities.
Postoperative changes consistent with prior repair of bimalleolar fracture
Past Medical History: Relapsing remitting multiple sclerosis, possible lupus, hypertension, anemia, bilateral carpal tunnel syndrome, left ankle fracture, morbid obesity
Procedure History: section, exploratory laparotomy December 2018, left shoulder surgery, cervical LEEP surgery, tubal ligation, left ankle ORIF
Family History: CAD
Social History:
Functional Level Premorbidly:�Modified�Independent with all activities. Has rolling walker and electric wheelchair.
Functional Level Currently:�Max A ADL's, Dependent toileting and lower extremity care, min assist bed mobility, ambulated 25 feet due to limited standing tolerance with rolling walker at supervision.
Tobacco:�Denies
Alcohol:�Denies
Drug use:�Denies
Lives with: Mother and brother
24-hour assistance available: No
Number of floors: First floor set up with bedroom and bathroom.
# steps to enter: 2 to get to Ramp
Driving: No due to leg weakness
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
Allergies:
Allergy/AdvReac Type Severity Reaction Status Date / Time
morphine Allergy Nausea / Verified 03/15/23 18:51
Vomiting
oxycodone [From Percocet] Allergy Nausea / Verified 03/15/23 18:51
Vomiting
Review of Systems:
Constitutional: (x) abNormal _general fatigue
Eye: (x) Normal _
Ear/Nose/Throat: (x) Normal _
Respiratory: (x) Normal _
Cardiovascular: (x) Normal _
Gastrointestinal: (x) Normal _
Genitourinary: (x) Normal _
Musculoskeletal: (x) abNormal _spasms, left ankle pain
Integumentary: (x) Normal _
Neurologic: (x) abNormal _decreased sensation in her hands
Psychiatric: (x) abNormal _ depression
Hematologic/Lymphatic: (x) Normal _
Allergic/Immunologic: (x) Normal _
Medications
Active Current Visit Medication List
Category Date Time Status
Acetaminophen [Tylenol] Med 11/14/23 08:12 Active
1,000 mg PO Q6HPRN PRN
Ascorbic Acid [Vitamin C] Med 11/13/23 22:00 Active
500 mg PO HS
Baclofen [Lioresal] Med 11/13/23 02:20 Active
10 mg PO PRN PRN
Bisacodyl [Dulcolax] Med 11/13/23 02:06 Active
10 mg RECTAL [id number] PRN
Cholecalciferol (Vitamin D3) [VITAMIN D3 ( Med 11/13/23 08:00 Active
cholecalciferol)]
25 mcg PO DAILY
Docusate W/Senna [Senokot-S] Med 11/13/23 02:06 Active
1 tablet PO BIDPRN PRN
Enoxaparin Sodium [Lovenox] Med 11/13/23 08:00 Active
60 mg SC BID
Ferrous Sulfate [Feosol] Med 11/13/23 08:00 Active
325 mg PO DAILY
Flush (0.9% Sodium Chloride) [Flush (Nss)] Med 11/13/23 03:00 Active
See Dose Instructions IV PER PROTOCOL
Gabapentin [Neurontin] Med 11/13/23 02:06 Active
300 mg PO HS
Labetalol [Trandate] Med 11/13/23 02:06 Active
300 mg PO BID
NIFEdipine EXTENDED RELEASE [Procardia Xl (Extended Med 11/13/23 08:00 Active
Release)]
30 mg PO DAILY
Polyethylene Glycol Powder [Miralax] Med 11/13/23 02:06 Active
17 grams PO DAILYPRN PRN
dalfampridine [Ampyra] Med 11/13/23 02:06 Pending
See Dose Instructions PO BID
:
Vitals:
Temp Pulse Resp BP Pulse Ox
98.0 F 79 18 152/81 97
11/16/23 07:00 11/16/23 07:00 11/16/23 07:00 11/16/23 07:00 11/16/23 07:00
Height 5 ft 2 in
Actual Weight 128.14 kg
Body Mass Index (BMI) 51.7
Physical Exam:
General Appearance/Observation: Well-developed obese female sitting in bed in no apparent distress.
Mood/Affect: Appropriate
Integumentary/Operative Site:
�� Pressure Ulcer: absent over heels
Eyes: Conjunctiva/Lids: normal�Pupils: pupils equal round and reactive to light and Accommodation Visual field cut: deficit on right
Ears/Nose/Throat: oral mucosa moist, �lips/Teeth/Gums: normal
Neck:muscle spasm, no tenderness.
Cardiovascular: Heart: regular, no murmur
Pulses: dorsalis pedis 1+ bilaterally
Respiratory: Respiratory Effort/Chest Expansion: normal�Auscultation: Clear to auscultation bilaterally
Gastrointestinal: abdomen not tender, no distension, obese, normal abdominal bowel sounds
Genitourinary: No Archuleta
Extremities:�Edema: bilaterally legs/feet �Cyanosis: None�Trophic�changes: None
Neurology Exam:
Orientation: Alert, Oriented to self, Time, Place
Comprehension: Intact
Two step command: Intact
Cranial Nerves:
�� CNII:�Pupillary light reflex: Intact���
�� CN III, IV, : Extraocular muscles: Intact���
� � CN V:�Facial Sensation�at�Forehead: Intact,�Maxilla: Intact,�Mandible: Intact
�� CN VII:�Facial movement: Symmetric
�� CN VIII:�Hearing: Normal
�� CN IX/X:�Speech & swallow: Normal,�Position of Uvula: Midline
�� CN XI:�Shoulder shrug: Symmetric
�� CN XII:�Tongue protrusion: Midline
Sensory:
�� Light touch: Impaired over bilateral hands and legs
�� Clonus: None
�� Javi: Negative bilaterally
Musculoskeletal:
Motor: (Manual muscle scale 0-5)
Muscle SA EF WE EE FF FA HF KE DF EHL PF
Right� � 5 � 4 4 4 1 2 1 � 3
Left � 5 � 4 4 1+ 3- 2 � 2
Tone: Normal in all extremities
\\
Range of Motion: Passively within normal limits in all extremities limited by body habitus
Lab Results
Labs
WBC 9.9 10^3/uL (4.8-10.8) 11/16/23 06:21
RBC 4.16 10^6/uL (4.20-5.40) L 11/16/23 06:21
Hgb 12.1 g/dL (12.0-16.0) 11/16/23 06:21
Hct 36.8 % (37.0-47.0) L 11/16/23 06:21
MCV 88.5 fL (81.0-99.0) 11/16/23 06:21
MCH 29.1 pg (27.0-31.0) 11/16/23 06:21
MCHC 32.9 g/dL (33.0-37.0) L 11/16/23 06:21
RDW 14.2 % (11.5-14.5) 11/16/23 06:21
Plt Count 241 10^3/uL (130-400) 11/16/23 06:21
MPV 10.5 fL (7.4-10.4) H 11/16/23 06:21
Abs Immat Gran (auto) 0.0 10^3/uL (0-0.05) 11/13/23 08:19
Absolute Neuts (auto) 6.2 10^3/uL (1.4-6.5) 11/13/23 08:19
Absolute Lymphs (auto) 0.3 10^3/uL (1.2-3.4) L 11/13/23 08:19
Absolute Monos (auto) 0.1 10^3/uL (0.1-0.6) 11/13/23 08:19
Absolute Eos (auto) 0.0 10^3/uL (0-0.7) 11/13/23 08:19
Absolute Basos (auto) 0.0 10^3/uL (0-0.2) 11/13/23 08:19
Immature Gran % 0.6 % (0-0.5) H 11/13/23 08:19
Neutrophils % 94.0 % (42.2-75.2) H 11/13/23 08:19
Lymphocytes % 4.0 % (20.5-51.1) L 11/13/23 08:19
Monocytes % 0.9 % (1.7-9.3) L 11/13/23 08:19
Eosinophils % 0.2 % (0-6) 11/13/23 08:19
Basophils % 0.3 % (0-2) 11/13/23 08:19
Nucleated RBC % 0 % 11/13/23 08:19
Sodium 138 mmol/L (135-145) 11/16/23 06:21
Potassium 4.5 mmol/L (3.5-5.1) 11/16/23 06:21
Chloride 109 mmol/L (98-107) H 11/16/23 06:21
Carbon Dioxide 24 mmol/L (22-30) 11/16/23 06:21
BUN 22 mg/dl (7-17) H 11/16/23 06:21
Creatinine 0.7 mg/dL (0.6-1.0) 11/16/23 06:21
Estimated Creat Clear 114 ml/min 11/16/23 06:21
eGFR > 60.00 11/16/23 06:21
Glucose 87 mg/dl (70-99) 11/16/23 06:21
Calcium 9.7 mg/dl (8.4-10.2) 11/16/23 06:21
Phosphorus 3.8 mg/dl (2.5-4.5) 11/16/23 06:21
Magnesium 2.1 mg/dl (1.6-2.3) 11/16/23 06:21
Total Bilirubin 0.6 mg/dl (0.2-1.3) 11/12/23 22:38
AST 26 U/L (14-36) 11/12/23 22:38
ALT 20 U/L (0-35) 11/12/23 22:38
Alkaline Phosphatase 66 U/L (38-126) 11/12/23 22:38
Total Protein 7.9 g/dl (6.3-8.2) 11/12/23 22:38
Albumin 5.0 g/dl (3.5-5.0) 11/12/23 22:38
Vitamin B12 500 pg/ml (239-931) 11/13/23 08:18
Vitamin D 25-Hydroxy 67.6 ng/mL (30-80) 11/16/23 06:21
TSH 0.22 uIU/ml (0.47-4.68) L 11/13/23 08:18
TSH (Reflex) 0.14 uIU/ml (0.47-4.68) L 11/15/23 06:04
Free T4 1.21 ng/dl (0.78-2.19) 11/15/23 06:04
Urine Color Yellow 11/12/23 22:38
Urine Clarity Clear (Clear) 11/12/23 22:38
Urine pH 6.5 (5.0-9.0) 11/12/23 22:38
Ur Specific Jennings 1.015 (<1.030) 11/12/23 22:38
Urine Ketones Negative (Negative) 11/12/23 22:38
Ur Occult Blood Reflex 1+ (Negative) A 11/12/23 22:38
Urine Nitrite (Reflex) Negative (Negative) 11/12/23 22:38
Urine Bilirubin Negative (Negative) 11/12/23 22:38
Urine Urobilinogen Negative (Neg - 1+) 11/12/23 22:38
Leukocyte Esterase Rfl Negative (Negative) 11/12/23 22:38
Urine RBC 3-6 /HPF (0-2) A 11/12/23 22:38
Urine WBC (Reflex) 0-2 /HPF (0-5) 11/12/23 22:38
Ur Squamous Epith Cells 0-2 /LPF (Few) 11/12/23 22:38
Urine Bacteria (Reflex) Few (Negative) A 11/12/23 22:38
Urine Glucose Negative (Negative) 11/12/23 22:38
Urine Albumin (Reflex) Negative (Neg - Trace) 11/12/23 22:38
SARS-CoV-2 Antigen Negative (Negative) 11/13/23 00:03
POC Glucose 151 mg/dl (70-99) H 11/15/23 16:34
�
Diagnostic Results: as per HPI
Assessment
58-year-old right-handed female with PMH (relapsing remitting multiple sclerosis, possible lupus, hypertension, anemia) with 11/14/2023 exacerbation of multiple sclerosis with worsening legs weakness resulting in multiple falls with ADL and
ambulatory dysfunction.
Plan
PT/OT to increase independence with ADLs, improve balance, coordination, endurance, strength, mobility, community reintegration, decreased burden of care on others and family education.
Ambulatory dysfunction: Would benefit from PT/OT.�Needs to pace herself. Significant fatigue makes her at higher risk for falling and more difficult for recovery. Could consider bracing for her ankles but would require double metal uprights which
would increase the weight of her legs significantly.�
MS: Neurology deems this a pseudo flare of multiple sclerosis given no new enhancing lesions on the spine MRI, probably multifactorial due to acute on chronic gait dysfunction and obesity, lower extremity edema, as well as mild metabolic (sleep
deprivation) and psychological stressors. Cont Ampyra 10 mg extended release twice daily. Getting Baclofen 10 mg PRN. Maybe TID to help with spasms. Vitamin D. Completed IV steroids.
Right Eye Visual Field Deficit started Sep 15- Improved- Outpt Ophthalmology follow up recommended
Neuropathic pain: gabapentin 300 at bedtime.
Anemia: Ferrous sulfate 325 mg daily. HGB 12.1
HTN: nifedipine ER 30 mg daily and labetalol 300 mg twice daily
RAFAELA: Bun 22, creatinine 0.7. Encourage PO Hydration.
Left ankle pain- XR without fx, cont PT/OT
Bowel: Senokot�S 1 tablet twice daily as needed, MiraLAX 17 g as needed, Dulcolax 10 mg rectal every 48 hours as needed.
Bladder: Monitor for urinary retention, persistent chronic frequency
DVT Prophylaxis: Mechanical and Lovenox 60 mg twice daily
Pulmonary: Incentive spirometry
Morbid obesity: Continue to christian counselor patient about diet adjustments to control obesity. Body habitus and increased force to move body and extremities causes further difficulty with functional tasks.
Safety: Continue to reinforce assistance with all transfers.
Code Status:� Full code
Functional and Medical Goals:�Modified Independent with ADL�s, ambulation, transfers
Discharge Destination:�She could benefit from a short-term acute inpatient rehabilitation program.
Summary of recommendations:
Discharge Destination: She could benefit from a short-term acute inpatient rehabilitation program for PT/OT to increase independence with ADLs, improve balance, coordination, endurance, strength, mobility, community reintegration, decreased burden
of care on others and family education.
Ambulatory dysfunction: multifactorial due to acute on chronic gait dysfunction and obesity, lower extremity edema, with pseudo flare of multiple sclerosis. Would benefit from PT/OT.�Needs to pace herself. Significant fatigue makes her at higher
risk for falling and more difficult for recovery. Could consider bracing for her ankles
MS: Getting Baclofen 10 mg HS prn, may have trial of TID to help spasms.Cont Ampyra 10 mg extended release twice daily.
Neuropathic pain: gabapentin 300mg HS
Leukocytosis: likely steroid related, not present on admission.
HTN: nifedipine and labetalol
Bladder: Monitor for urinary retention, persistent chronic frequency
DVT Prophylaxis: Mechanical and Lovenox
Pulmonary: Incentive spirometry
Morbid obesity: Continue to christian counselor patient about diet adjustments to control obesity. Body habitus and increased force to move body and extremities causes further difficulty with functional tasks.
Safety: Continue to reinforce assistance with all transfers.
Thank you for allowing me to care for your patient. Please contact me with any questions or concerns.
This note was dictated using a voice recognition system. Please excuse any typographical errors from unhairing inspector. If you believe there are any discrepancies, please notify our office.

Documented by User: Avila Scott MD 11/17/23 09:33
Consultation - Medical
-
Referring Provider: Anthony Salamanca
Chief Complaint: Ambulatory dysfunction
History of Present Illness: 58-year-old right-hand dominant female with PMH (Relapsing remitting multiple sclerosis, AWILDA, neuropathy, hypertension, anemia, bilateral carpal tunnel syndrome, left ankle fracture, morbid obesity) presented to
[facility] on 11/12/2023 with report of 1 week history of increased muscle weakness and difficulty walking. She reports 4 falls in the past 2 months. Normally ambulates with walker but has been more dependent on it. On wednesday, she fell
and hit her left ankle with h/o ORIF. She was so weak she could not get up from the bathroom prompting evaluation. Also reports a black spot over 1/4 of her right eye. Denies history of internuclear ophthalmoplegia. Weakness worse on the right lower
extremity than the left. She also has generalized worsening weakness and left ankle pain.
Thoracic MRI
Slightly progressed nonenhancing demyelinating lesions scattered throughout the thoracic spinal cord. Severe spinal canal stenosis at L4-5, slightly progressed. Trace bilateral pleural effusions.Partially visualized left thyroid lobe nodule measures
up to 1.1 cm. Consider outpatient workup with dedicated thyroid ultrasound if not previously performed.
Lumbar MRI
Slightly progressed nonenhancing demyelinating lesions scattered throughout the thoracic spinal cord. Severe spinal canal stenosis at L4-5, slightly progressed.
CT of Head
There are no acute intracranial abnormalities.
There is diffuse cortical atrophy with nonspecific white matter changes as described above.
Xray of Ankle
No acute abnormalities.
Postoperative changes consistent with prior repair of bimalleolar fracture
Past Medical History: Relapsing remitting multiple sclerosis, possible lupus, hypertension, anemia, bilateral carpal tunnel syndrome, left ankle fracture, morbid obesity
Procedure History: section, exploratory laparotomy December 2018, left shoulder surgery, cervical LEEP surgery, tubal ligation, left ankle ORIF
Family History: CAD
Social History:
Functional Level Premorbidly:�Modified�Independent with all activities. Has rolling walker for use in the house and electric wheelchair. For community mobility
Functional Level Currently:�Max A ADL's, Dependent toileting and lower extremity care, min assist bed mobility, ambulated 25 feet due to limited standing tolerance with rolling walker at supervision.
Tobacco:�Denies
Alcohol:�Denies
Drug use:�Denies
Lives with: Mother and brother
24-hour assistance available: No
Number of floors: First floor set up with bedroom and bathroom.
# steps to enter: 2 to get to Ramp
Driving: No due to leg weakness
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
Allergies:
Allergy/AdvReac Type Severity Reaction Status Date / Time
morphine Allergy Nausea / Verified 03/15/23 18:51
Vomiting
oxycodone [From Percocet] Allergy Nausea / Verified 03/15/23 18:51
Vomiting
Review of Systems:
Constitutional: (x) abNormal _general fatigue
Eye: (x) Normal _
Ear/Nose/Throat: (x) Normal _
Respiratory: (x) Normal _
Cardiovascular: (x) Normal _
Gastrointestinal: (x) Normal _
Genitourinary: (x) Normal _
Musculoskeletal: (x) abNormal _spasms, left ankle pain
Integumentary: (x) Normal _
Neurologic: (x) abNormal _decreased sensation in her hands
Psychiatric: (x) abNormal _ depression, more related to her chronic MS and ability to do things she wants to do. Notes doing better with her breathing after the loss of her which had been a main factor in her depressive symptoms. He is
interested in speaking with a psychologist/psychiatrist as an outpatient.
Hematologic/Lymphatic: (x) Normal _
Allergic/Immunologic: (x) Normal _
Medications
Active Current Visit Medication List
Category Date Time Status
Acetaminophen [Tylenol] Med 11/14/23 08:12 Active
1,000 mg PO Q6HPRN PRN
Ascorbic Acid [Vitamin C] Med 11/13/23 22:00 Active
500 mg PO HS
Baclofen [Lioresal] Med 11/13/23 02:20 Active
10 mg PO PRN PRN
Bisacodyl [Dulcolax] Med 11/13/23 02:06 Active
10 mg RECTAL [id number] PRN
Cholecalciferol (Vitamin D3) [VITAMIN D3 ( Med 11/13/23 08:00 Active
cholecalciferol)]
25 mcg PO DAILY
Docusate W/Senna [Senokot-S] Med 11/13/23 02:06 Active
1 tablet PO BIDPRN PRN
Enoxaparin Sodium [Lovenox] Med 11/13/23 08:00 Active
60 mg SC BID
Ferrous Sulfate [Feosol] Med 11/13/23 08:00 Active
325 mg PO DAILY
Flush (0.9% Sodium Chloride) [Flush (Nss)] Med 11/13/23 03:00 Active
See Dose Instructions IV PER PROTOCOL
Gabapentin [Neurontin] Med 11/13/23 02:06 Active
300 mg PO HS
Labetalol [Trandate] Med 11/13/23 02:06 Active
300 mg PO BID
NIFEdipine EXTENDED RELEASE [Procardia Xl (Extended Med 11/13/23 08:00 Active
Release)]
30 mg PO DAILY
Polyethylene Glycol Powder [Miralax] Med 11/13/23 02:06 Active
17 grams PO DAILYPRN PRN
dalfampridine [Ampyra] Med 11/13/23 02:06 Pending
See Dose Instructions PO BID
Vitals:
Temp Pulse Resp BP Pulse Ox
98.0 F 79 18 152/81 97
11/16/23 07:00 11/16/23 07:00 11/16/23 07:00 11/16/23 07:00 11/16/23 07:00
Height 5 ft 2 in
Actual Weight 128.14 kg
Body Mass Index (BMI) 51.7
Physical Exam:
General Appearance/Observation: Well-developed obese female sitting in bed in no apparent distress.
Mood/Affect: Appropriate
Integumentary/Operative Site:
�� Pressure Ulcer: absent over heels
Eyes: Conjunctiva/Lids: normal�Pupils: pupils equal round and reactive to light and Accommodation Visual field cut: deficit on right
Ears/Nose/Throat: oral mucosa moist, �lips/Teeth/Gums: normal
Neck:muscle spasm, no tenderness.
Cardiovascular: Heart: regular, no murmur
Pulses: dorsalis pedis 1+ bilaterally
Respiratory: Respiratory Effort/Chest Expansion: normal�Auscultation: Clear to auscultation bilaterally
Gastrointestinal: abdomen not tender, no distension, obese, normal abdominal bowel sounds
Genitourinary: No Archuleta
Extremities:�Edema: bilaterally legs/feet �Cyanosis: None�Trophic�changes: None
Neurology Exam:
Orientation: Alert, Oriented to self, Time, Place
Comprehension: Intact
Two step command: Intact
Cranial Nerves:
�� CNII:�Pupillary light reflex: Intact���
�� CN III, IV, : Extraocular muscles: Intact���
� � CN V:�Facial Sensation�at�Forehead: Intact,�Maxilla: Intact,�Mandible: Intact
�� CN VII:�Facial movement: Symmetric
�� CN VIII:�Hearing: Normal
�� CN IX/X:�Speech & swallow: Normal,�Position of Uvula: Midline
�� CN XI:�Shoulder shrug: Symmetric
�� CN XII:�Tongue protrusion: Midline
Sensory:
�� Light touch: Impaired over bilateral hands and legs
�� Clonus: None
�� Javi: Negative bilaterally
Musculoskeletal: Motor: (Manual muscle scale 0-5)
Muscle SA EF WE EE FF FA HF KE DF EHL PF
Right� � 5 � 4 5 4 1 2 1 � 3
Left � 5 � 4 5 4 1+ 3 2 � 2
Tone: Normal in all extremities
Range of Motion: Passively within normal limits in all extremities limited by body habitus
Lab Results
Labs
WBC 9.9 10^3/uL (4.8-10.8) 11/16/23 06:21
RBC 4.16 10^6/uL (4.20-5.40) L 11/16/23 06:21
Hgb 12.1 g/dL (12.0-16.0) 11/16/23 06:21
Hct 36.8 % (37.0-47.0) L 11/16/23 06:21
MCV 88.5 fL (81.0-99.0) 11/16/23 06:21
MCH 29.1 pg (27.0-31.0) 11/16/23 06:21
MCHC 32.9 g/dL (33.0-37.0) L 11/16/23 06:21
RDW 14.2 % (11.5-14.5) 11/16/23 06:21
Plt Count 241 10^3/uL (130-400) 11/16/23 06:21
MPV 10.5 fL (7.4-10.4) H 11/16/23 06:21
Abs Immat Gran (auto) 0.0 10^3/uL (0-0.05) 11/13/23 08:19
Absolute Neuts (auto) 6.2 10^3/uL (1.4-6.5) 11/13/23 08:19
Absolute Lymphs (auto) 0.3 10^3/uL (1.2-3.4) L 11/13/23 08:19
Absolute Monos (auto) 0.1 10^3/uL (0.1-0.6) 11/13/23 08:19
Absolute Eos (auto) 0.0 10^3/uL (0-0.7) 11/13/23 08:19
Absolute Basos (auto) 0.0 10^3/uL (0-0.2) 11/13/23 08:19
Immature Gran % 0.6 % (0-0.5) H 11/13/23 08:19
Neutrophils % 94.0 % (42.2-75.2) H 11/13/23 08:19
Lymphocytes % 4.0 % (20.5-51.1) L 11/13/23 08:19
Monocytes % 0.9 % (1.7-9.3) L 11/13/23 08:19
Eosinophils % 0.2 % (0-6) 11/13/23 08:19
Basophils % 0.3 % (0-2) 11/13/23 08:19
Nucleated RBC % 0 % 11/13/23 08:19
Sodium 138 mmol/L (135-145) 11/16/23 06:21
Potassium 4.5 mmol/L (3.5-5.1) 11/16/23 06:21
Chloride 109 mmol/L (98-107) H 11/16/23 06:21
Carbon Dioxide 24 mmol/L (22-30) 11/16/23 06:21
BUN 22 mg/dl (7-17) H 11/16/23 06:21
Creatinine 0.7 mg/dL (0.6-1.0) 11/16/23 06:21
Estimated Creat Clear 114 ml/min 11/16/23 06:21
eGFR > 60.00 11/16/23 06:21
Glucose 87 mg/dl (70-99) 11/16/23 06:21
Calcium 9.7 mg/dl (8.4-10.2) 11/16/23 06:21
Phosphorus 3.8 mg/dl (2.5-4.5) 11/16/23 06:21
Magnesium 2.1 mg/dl (1.6-2.3) 11/16/23 06:21
Total Bilirubin 0.6 mg/dl (0.2-1.3) 11/12/23 22:38
AST 26 U/L (14-36) 11/12/23 22:38
ALT 20 U/L (0-35) 11/12/23 22:38
Alkaline Phosphatase 66 U/L (38-126) 11/12/23 22:38
Total Protein 7.9 g/dl (6.3-8.2) 11/12/23 22:38
Albumin 5.0 g/dl (3.5-5.0) 11/12/23 22:38
Vitamin B12 500 pg/ml (239-931) 11/13/23 08:18
Vitamin D 25-Hydroxy 67.6 ng/mL (30-80) 11/16/23 06:21
TSH 0.22 uIU/ml (0.47-4.68) L 11/13/23 08:18
TSH (Reflex) 0.14 uIU/ml (0.47-4.68) L 11/15/23 06:04
Free T4 1.21 ng/dl (0.78-2.19) 11/15/23 06:04
Urine Color Yellow 11/12/23 22:38
Urine Clarity Clear (Clear) 11/12/23 22:38
Urine pH 6.5 (5.0-9.0) 11/12/23 22:38
Ur Specific [place] 1.015 (<1.030) 11/12/23 22:38
Urine Ketones Negative (Negative) 11/12/23 22:38
Ur Occult Blood Reflex 1+ (Negative) A 11/12/23 22:38
Urine Nitrite (Reflex) Negative (Negative) 11/12/23 22:38
Urine Bilirubin Negative (Negative) 11/12/23 22:38
Urine Urobilinogen Negative (Neg - 1+) 11/12/23 22:38
Leukocyte Esterase Rfl Negative (Negative) 11/12/23 22:38
Urine RBC 3-6 /HPF (0-2) A 11/12/23 22:38
Urine WBC (Reflex) 0-2 /HPF (0-5) 11/12/23 22:38
Ur Squamous Epith Cells 0-2 /LPF (Few) 11/12/23 22:38
Urine Bacteria (Reflex) Few (Negative) A 11/12/23 22:38
Urine Glucose Negative (Negative) 11/12/23 22:38
Urine Albumin (Reflex) Negative (Neg - Trace) 11/12/23 22:38
SARS-CoV-2 Antigen Negative (Negative) 11/13/23 00:03
POC Glucose 151 mg/dl (70-99) H 11/15/23 16:34
Diagnostic Results: as per HPI
Assessment
58-year-old right-handed female with PMH (relapsing remitting multiple sclerosis, possible lupus, hypertension, anemia) with 11/14/2023 exacerbation of multiple sclerosis with worsening legs weakness resulting in multiple falls with ADL and
ambulatory dysfunction.
Plan
PT/OT to increase independence with ADLs, improve balance, coordination, endurance, strength, mobility, community reintegration, decreased burden of care on others and family education.
Ambulatory dysfunction: Would benefit from PT/OT.�Needs to pace herself. Significant fatigue makes her at higher risk for falling and more difficult for recovery. Could consider bracing for her ankles but would require double metal uprights which
would increase the weight of her legs significantly.�
MS: Neurology deems this a pseudo flare of multiple sclerosis given no new enhancing lesions on the spine MRI, probably multifactorial due to acute on chronic gait dysfunction and obesity, lower extremity edema, as well as mild metabolic (sleep
deprivation) and psychological stressors. Cont Ampyra 10 mg extended release twice daily. Getting Baclofen 10 mg PRN. Maybe TID to help with spasms. Vitamin D. Completed IV steroids.
Right Eye Visual Field Deficit started Sep 15- Improved- Outpt Ophthalmology follow up recommended
Neuropathic pain: gabapentin 300 at bedtime.
Anemia: Ferrous sulfate 325 mg daily. HGB 12.1
HTN: nifedipine ER 30 mg daily and labetalol 300 mg twice daily
RAFAELA: Bun 22, creatinine 0.7. Encourage PO Hydration.
Left ankle pain: XR without fx, cont PT/OT
Depressive symptoms: I work with Annette over many years. She has had some depressive symptoms without suicidal or homicidal ideation for quite some time. Initially with bereavement concerns of the loss of her that have been going on for
many years. Upon talking her today she feels like she has still some grieving related to her but is at a much better level than it used to be and she feels that it is not causing a significant impact on her at this time as it has in the
past. More recently she has been looking at some of the limitations she has been having secondary to her MS and things that she would like to be doing. Her home situation is also concerned because her mom is a hoarder and has things in the way
that limits her from being able to be more active from an exercise program and mobility perspective. We discussed extensively different ways of viewing the same situation and how talking with a psychologist could help her learn how to process
things and a positive manner versus a negative manner and prevent some detrimental thinking. I do think seeing a psychologist and a psychiatrist could be very helpful for her. We reviewed her concerns and some potential limitations for this and
ways to overcome them. I challenged her to not make going to see a psychologist and psychiatrist something she might do but making a firm decision to get the process started which is something she has struggled with in the past. Provided support
and counseling.
Bowel: Senokot�S 1 tablet twice daily as needed, MiraLAX 17 g as needed, Dulcolax 10 mg rectal every 48 hours as needed.
Bladder: Monitor for urinary retention, persistent chronic frequency
DVT Prophylaxis: Mechanical and Lovenox 60 mg twice daily
Pulmonary: Incentive spirometry
Morbid obesity: Continue to christian counselor patient about diet adjustments to control obesity. Body habitus and increased force to move body and extremities causes further difficulty with functional tasks.
Safety: Continue to reinforce assistance with all transfers.
Code Status:� Full code
Functional and Medical Goals:�Modified Independent with ADL�s, ambulation, transfers
Discharge Destination:�She could benefit from a short-term acute inpatient rehabilitation program.
Attending statement:
I saw and examined the patient on 11/16/2023. Reviewed care plan with patient, therapy, nursing, and physician commercial loan assistant. I agree with the above subjective, physical exam, and plan as documented above.
A total of 60 minutes were spent with the patient preparing for the evaluation, obtaining history, performing examination and evaluation, counseling, data review, case management, care coordination, medical orderly, and EMR documentation.
Summary of recommendations:
Discharge Destination: She could benefit from a short-term acute inpatient rehabilitation program for PT/OT to increase independence with ADLs, improve balance, coordination, endurance, strength, mobility, community reintegration, decreased burden
of care on others and family education.
Ambulatory dysfunction: multifactorial due to acute on chronic gait dysfunction and obesity, lower extremity edema, with pseudo flare of multiple sclerosis. Would benefit from PT/OT.�Needs to pace herself. Significant fatigue makes her at higher
risk for falling and more difficult for recovery. Could consider bracing for her ankles
MS: Getting Baclofen 10 mg HS prn, may have trial of TID to help spasms.Cont Ampyra 10 mg extended release twice daily.
Neuropathic pain: gabapentin 300mg HS
Leukocytosis: likely steroid related, not present on admission.
Depressive symptoms: Suggest outpatient psychology and psychiatry as discussed.
Bladder: Monitor for urinary retention, persistent chronic frequency
DVT Prophylaxis: Mechanical and Lovenox
Pulmonary: Incentive spirometry
Morbid obesity: Continue to christian counselor patient about diet adjustments to control obesity. Body habitus and increased force to move body and extremities causes further difficulty with functional tasks.
Safety: Continue to reinforce assistance with all transfers.
Thank you for allowing me to care for your patient. Please contact me with any questions or concerns.
--- NOTE | 2023-11-16 07:57 | W.PN.HOSP.TC ---
Today's Communication/Plan
-
Follow up PTH
cont PT/OT
PMR eval
Venous duplex lower ext's
Assessment / Plan
Assessment / Plan
Physical Exam
General: No acute distress, appears comfortable at this time.
CVS: S1-S2 normal
Chest: CTA B/L
Abdomen: Soft, NT / Bowel sounds present
Extremities: swollen lower ext's b/l chronic
Neuro: AOx3
58-year-old female with history of relapsing remitting multiple sclerosis presented to the hospital with worsening ambulatory dysfunction and multiple falls in the past 2 months. She denies any fever, diarrhea, URI.
L ankle Xray: No acute abnormalities. Postoperative changes consistent with prior repair of bimalleolar fracture
CT brain: There are no acute intracranial abnormalities. There is diffuse cortical atrophy with nonspecific white matter changes.
CXR: No active cardiopulmonary disease.
MRI of the thoracic and Lumbar spine-Slightly progressed nonenhancing demyelinating lesions scattered throughout the thoracic spinal cord.Severe spinal canal stenosis at L4-5, slightly progressed.Trace bilateral pleural effusions.
Partially visualized left thyroid lobe nodule measures up to 1.1 cm. Consider outpatient workup with dedicated thyroid ultrasound if not previously performed.
#B/L Leg Weakness due to suspected MS Flare:
-presented with ambulatory dysfunction, falls, generalized weakness (acute on Chronic R>L leg weakness increased) and Right Eye Visual Field Deficit
-COVID/flu NEG
-appreciate neuro eval
-MRI L and T spines appreciated slightly progressed scattered demyelinating lesions, severe spinal stenosis L4-L5, partial visualization Left Thyroid lobe nodule 1.1 cm
-s/p 20mg IV Decadron in ER followed by 1g IV Solumedrol 11/13/23 and 11/14/23, currently off steroids as per neuro recc's
-Currently on Ocrevus Q6mo last received 08/27
-Continue Gabapentin and Ampyra 20mg daily
-Continue Baclofen
-PT/OT
-Physiatry eval for Acute rehab recommendations. Consulted, pending eval
Swelling lower ext b/l chronic lymphedema
venous US eval possible DVT pending
Mild Hypercalcemia resolved
Vit D wnl
PTH level pending
#Depression
denies suicidal or homicidal ideation
Psych eval, per pt's request, appreciated
#Thyroid nodule- OP USS
Pt aware
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
since improved but remains present
outpt Ophthalmology follow up recommended
#Left Ankle Pain: XR without fx, cont PT/OT
#Essential HTN: cont cont BB/CCB
#Spasticity: Continue home baclofen and gabapentin
#Severe spinal canal stenosis
#Morbid Obesity due to excess calories: Encourage weight loss.
#FULL CODE
#Lovenox for DVT Prophylaxis
I spent a total of 50 minutes with the patient or on the floor. More than 50% of this time involved counseling and coordination of care.
Anticipated Discharge: 24 - 48 hours
Subjective/Interval History
-
Date of Service: November 16, 2023
No acute distress sitting up comfortably in bed. Denies new acute issues at this time.
Objective Data
-
Labs:
Laboratory Results
11/16/23 11/16/23
06:00 06:21
WBC 9.9
Hgb 12.1
Hct 36.8 L
Plt Count 241
Sodium Cancelled 138
Potassium Cancelled 4.5
Chloride Cancelled 109 H
Carbon Dioxide Cancelled 24
BUN Cancelled 22 H
Creatinine Cancelled 0.7
Glucose Cancelled 87
Calcium Cancelled 9.7
Vital Signs:
Vital Signs
Temp Pulse Resp BP Pulse Ox
98.0 F 79 18 152/81 97
11/16/23 07:00 11/16/23 07:00 11/16/23 07:00 11/16/23 07:00 11/16/23 07:00
I&O
11/15/23 11/16/23 11/17/23
06:59 06:59 06:59
Intake Total 2100 / 2100 1200 / 1200
Output Total 1050 / 1050 550 / 550
Balance 1050 / 1050 650 / 650
[2023-11-16] MEDS: FEOSOL 325 MG PO (07:59)
[2023-11-16] MEDS: PROCARDIA XL (EXTENDED RELEASE) 30 MG PO (07:59)
[2023-11-16] MEDS: LOVENOX 60 MG SC ×2 (08:00→20:50)
[2023-11-16] MEDS: VITAMIN D3 (cholecalciferol) 25 MCG PO (08:00)
[2023-11-16] MEDS: TRANDATE 300 MG PO ×2 (08:55→20:50)
[2023-11-16] MEDS: NON-FORMULARY ITEM 10 MG PO ×2 (10:13→20:50)
[2023-11-16] MEDS: VITAMIN C 500 MG PO (20:49)
[2023-11-16] MEDS: NEURONTIN 300 MG PO (20:49)
[2023-11-16] MEDS: TYLENOL 1000 MG PO (21:19)
--- NOTE | 2023-11-16 21:23 | PTCARENOTE ---
Pt placed on bedpan, c/o inability to urinate. Pt states she feels like she 'has to push when peeing,' bladder scanned for 87mL. Call simons within reach
--- NOTE | 2023-11-17 04:45 | DOWNTIME ---
There was a [facility] Client Quality Nurse Downtime on 11/17/2023 from 0100 to 11/17/2023 at 0439. Downtime documentation of patient's care, including medication administrations, has been reconciled in the electronic record per guidelines. Refer to the
patient's paper chart under the miscellaneous tab to see printed paper medication records and downtime forms.
[2023-11-17 05:55] VITALS: BMI 51.6
[2023-11-17 06:42] LABS: Hematocrit 36.1 % (37.0-47.0); Hemoglobin 11.9 g/dL (12.0-16.0); Mean Platelet Volume 10.6 fL (7.4-10.4); Platelet Count 244 10^3/uL (130-400); Red Cell Dist. Width 13.8 % (11.5-14.5); White Blood Cell Count 8.4 10^3/uL (4.8-10.8)
[2023-11-17 07:00] VITALS: BP 163/87
[2023-11-17 07:05] LABS: Blood Urea Nitrogen 16 mg/dl (7-17); Calcium 9.8 mg/dl (8.4-10.2); Carbon Dioxide 26 mmol/L (22-30); Chloride 103 mmol/L (98-107); Estimated Creatinine Clearance > 125 ml/min; Glucose 95 mg/dl (70-99); Magnesium 2.1 mg/dl (1.6-2.3); Phosphorus 4.5 mg/dl (2.5-4.5); Potassium 4.2 mmol/L (3.5-5.1); Sodium 136 mmol/L (135-145); eGFR > 60.00
[2023-11-17] MEDS: TRANDATE 300 MG PO ×2 (08:28→22:01)
[2023-11-17] MEDS: VITAMIN D3 (cholecalciferol) 25 MCG PO (08:28)
[2023-11-17] MEDS: PROCARDIA XL (EXTENDED RELEASE) 30 MG PO (08:28)
[2023-11-17] MEDS: FEOSOL 325 MG PO (08:29)
[2023-11-17] MEDS: LOVENOX 60 MG SC ×2 (08:29→22:04)
[2023-11-17] MEDS: NON-FORMULARY ITEM 10 MG PO (08:31)
--- NOTE | 2023-11-17 08:38 | W.PN.HOSP.TC ---
Today's Communication/Plan
-
start oxybutynin for likely overactive bladder
discharge planning Acute Rehab, insurance auth pending
Assessment / Plan
Assessment / Plan
Physical Exam
General: No acute distress, appears comfortable at this time.
CVS: S1-S2 normal
Chest: CTA B/L
Abdomen: Soft, NT / Bowel sounds present
Extremities: swollen lower ext's b/l chronic
Neuro: AOx3
58-year-old female with history of relapsing remitting multiple sclerosis presented to the hospital with worsening ambulatory dysfunction and multiple falls in the past 2 months. She denies any fever, diarrhea, URI.
L ankle Xray: No acute abnormalities. Postoperative changes consistent with prior repair of bimalleolar fracture
CT brain: There are no acute intracranial abnormalities. There is diffuse cortical atrophy with nonspecific white matter changes.
CXR: No active cardiopulmonary disease.
MRI of the thoracic and Lumbar spine-Slightly progressed nonenhancing demyelinating lesions scattered throughout the thoracic spinal cord.Severe spinal canal stenosis at L4-5, slightly progressed.Trace bilateral pleural effusions.
Partially visualized left thyroid lobe nodule measures up to 1.1 cm. Consider outpatient workup with dedicated thyroid ultrasound if not previously performed.
#B/L Leg Weakness due to suspected MS Flare:
-presented with ambulatory dysfunction, falls, generalized weakness (acute on Chronic R>L leg weakness increased) and Right Eye Visual Field Deficit
-COVID/flu NEG
-appreciate neuro eval
-MRI L and T spines appreciated slightly progressed scattered demyelinating lesions, severe spinal stenosis L4-L5, partial visualization Left Thyroid lobe nodule 1.1 cm
-s/p 20mg IV Decadron in ER followed by 1g IV Solumedrol 11/13/23 and 11/14/23, currently off steroids as per neuro recc's
-Currently on Ocrevus Q6mo last received 08/27
-Continue Gabapentin and Ampyra 20mg daily
-Continue Baclofen
-PT/OT
-Physiatry eval appreciated Acute Rehab pending Insurance Auth
Swelling lower ext b/l chronic lymphedema
venous US neg for DVT
Mild Hypercalcemia resolved
Vit D wnl
PTH level wnl
#Depression
denies suicidal or homicidal ideation
Psych eval, per pt's request, appreciated
#Thyroid nodule- OP USS
Pt aware
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
since improved but remains present
outpt Ophthalmology follow up recommended
#Urinary Urgency Frequency Incontinence
recent urinalysis neg for UTI, repeating
discussed with nurse, no significant retention
suspect overactive bladder, oxybutynin low dose started 5 mg BID
#Left Ankle Pain: XR without fx, cont PT/OT
#Essential HTN: cont cont BB/CCB
#Spasticity: Continue home baclofen and gabapentin
#Severe spinal canal stenosis
#Morbid Obesity due to excess calories: Encourage weight loss.
#FULL CODE
#Lovenox for DVT Prophylaxis
I spent a total of 53 minutes with the patient or on the floor. More than 50% of this time involved counseling and coordination of care.
Anticipated Discharge: 24 - 48 hours
Subjective/Interval History
-
Date of Service: November 17, 2023
Reports urinary incontinence with associate urinary urgency and urinary frequency
Objective Data
-
Labs:
Laboratory Results
11/17/23
06:25
WBC 8.4
Hgb 11.9 L
Hct 36.1 L
Plt Count 244
Sodium 136
Potassium 4.2
Chloride 103
Carbon Dioxide 26
BUN 16
Creatinine 0.6
Glucose 95
Calcium 9.8
Vital Signs:
Vital Signs
Temp Pulse Resp BP Pulse Ox
98.1 F 87 18 129/68 96
11/16/23 23:02 11/16/23 23:02 11/16/23 23:02 11/16/23 23:02 11/16/23 23:02
I&O
11/16/23 11/17/23 11/18/23
06:59 06:59 06:59
Intake Total 1200 / 1200 960 / 960
Output Total 550 / 550
Balance 650 / 650 960 / 960
[2023-11-17 10:26] LABS: Intact PTH 48.3 pg/ml (13.6-85.8)
--- NOTE | 2023-11-17 14:04 | CM ---
Received referral from attending for acute care. Met with patient who stated that if her insurance approves it, she would like to go to acute rehab at [facility]. Will send referral.
Plan: Case management will continue to follow and assist with discharge planning. Patient would like to go to [facility].
[2023-11-17 15:00] VITALS: BP 141/71
[2023-11-17] MEDS: VITAMIN C 500 MG PO (22:03)
[2023-11-17] MEDS: DITROPAN 5 MG PO (22:04)
[2023-11-17] MEDS: NON-FORMULARY ITEM 1 MG PO (22:04)
[2023-11-17] MEDS: NEURONTIN 300 MG PO (22:07)
[2023-11-17 22:59] VITALS: BP 121/79
[2023-11-18 06:00] VITALS: BMI 50.8
[2023-11-18 07:00] VITALS: BP 156/88
--- NOTE | 2023-11-18 07:28 | W.PN.HOSP.TC ---
Today's Communication/Plan
-
cont oxybutynin
follow urine culture
discharge planning Acute rehab, medically stable for discharge
Assessment / Plan
Assessment / Plan
Physical Exam
General: No acute distress, appears comfortable at this time.
CVS: S1-S2 normal
Chest: CTA B/L
Abdomen: Soft, NT / Bowel sounds present
Extremities: swollen lower ext's b/l chronic
Neuro: AOx3
58-year-old female with history of relapsing remitting multiple sclerosis presented to the hospital with worsening ambulatory dysfunction and multiple falls in the past 2 months. She denies any fever, diarrhea, URI.
L ankle Xray: No acute abnormalities. Postoperative changes consistent with prior repair of bimalleolar fracture
CT brain: There are no acute intracranial abnormalities. There is diffuse cortical atrophy with nonspecific white matter changes.
CXR: No active cardiopulmonary disease.
MRI of the thoracic and Lumbar spine-Slightly progressed nonenhancing demyelinating lesions scattered throughout the thoracic spinal cord.Severe spinal canal stenosis at L4-5, slightly progressed.Trace bilateral pleural effusions.
Partially visualized left thyroid lobe nodule measures up to 1.1 cm. Consider outpatient workup with dedicated thyroid ultrasound recommended
#B/L Leg Weakness due to suspected MS Flare:
-presented with ambulatory dysfunction, falls, generalized weakness (acute on Chronic R>L leg weakness increased) and Right Eye Visual Field Deficit
-COVID/flu NEG
-appreciate neuro eval
-MRI L and T spines appreciated slightly progressed scattered demyelinating lesions, severe spinal stenosis L4-L5, partial visualization Left Thyroid lobe nodule 1.1 cm
-s/p 20mg IV Decadron in ER followed by 1g IV Solumedrol 11/13/23 and 11/14/23, currently off steroids as per neuro recc's
-Currently on Ocrevus Q6mo last received 08/27
-Continue Gabapentin and Ampyra 20mg daily
-Continue Baclofen
-PT/OT
-Physiatry eval appreciated Acute Rehab pending Insurance Auth
Swelling lower ext b/l chronic lymphedema
venous US neg for DVT
Mild Hypercalcemia resolved
Vit D wnl
PTH level wnl
#Depression
denies suicidal or homicidal ideation
Psych eval, per pt's request, appreciated
#Thyroid nodule- OP USS
Pt aware
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
since improved but remains present
outpt Ophthalmology follow up recommended
#Urinary Urgency Frequency Incontinence
recent urinalysis neg for UTI, repeat urinalysis not suggestive UTI, culture pending
discussed with nurse, no significant retention
suspect overactive bladder, oxybutynin low dose started 5 mg BID, cont
#Left Ankle Pain: XR without fx, cont PT/OT
#Essential HTN: cont cont BB/CCB
#Spasticity: Continue home baclofen and gabapentin
#Severe spinal canal stenosis
#Morbid Obesity due to excess calories: Encourage weight loss.
#FULL CODE
#Lovenox for DVT Prophylaxis
I spent a total of 53 minutes with the patient or on the floor. More than 50% of this time involved counseling and coordination of care.
Anticipated Discharge: Within 24 hours
Subjective/Interval History
-
Date of Service: November 18, 2023
urinary urgency incontinence persists. Patient otherwise reports feeling relatively well.
Objective Data
-
Vital Signs:
Vital Signs
Temp Pulse Resp BP Pulse Ox
98.1 F 89 18 121/79 96
11/17/23 22:59 11/17/23 22:59 11/17/23 22:59 11/17/23 22:59 11/17/23 22:59
I&O
11/17/23 11/18/23 11/19/23
06:59 06:59 06:59
Intake Total 960 / 960 960 / 960
Balance 960 / 960 960 / 960
[2023-11-18] MEDS: PROCARDIA XL (EXTENDED RELEASE) 30 MG PO (08:00)
[2023-11-18] MEDS: DITROPAN 5 MG PO ×2 (08:01→20:33)
[2023-11-18] MEDS: TRANDATE 300 MG PO ×2 (08:01→20:34)
[2023-11-18] MEDS: VITAMIN D3 (cholecalciferol) 25 MCG PO (08:01)
[2023-11-18] MEDS: NON-FORMULARY ITEM 10 MG PO (08:01)
[2023-11-18] MEDS: FEOSOL 325 MG PO (08:02)
[2023-11-18] MEDS: LOVENOX 60 MG SC ×2 (08:02→20:34)
--- NOTE | 2023-11-18 10:19 | PN.CDI ---
CDI
- -
CDI:
Physician Documentation Request
Admit Date: 11/13/23 00:43
Dear Doctor Aiden,
Clinical Indicators:
Patient admitted with suspected MS flare.
11/12- 11/16 RN skin/wound assessments: Sacrum Stage 1 Pressure Injury, POA
Treatment: Silicone border foam dressing, per protocol
Physician documentation of the type and location of wounds is required for compliant documentation. Based on the above clinical findings and your assessment, please provide the following in your progress note:
1. Location of the ulcer/wound, including laterality.
2. Type (etiology) of ulcer/wound:
- Pressure (decubitus) ulcer
- Other, please specify
- Unable to determine
3. If a pressure ulcer, please also include the stage* of the ulcer:
- Stage 1 - Skin intact, non-blanchable redness
- Stage 2 - Partial thickness loss of dermis, includes intact or open blister
- Stage 3 - Full thickness tissue not including bone, tendon or muscle
- Stage 4 - Full thickness tissue loss, including exposed bone, tendon or muscle
- Unstageable - Full thickness loss in which the base of the ulcer is covered by slough (yellow, castillo, jiménez, green or brown) and/or eschar (castillo, brown or black) in the wound bed.
- Unable to determine
Use of terms such as suspected, likely, concern for, or probable (associated with a specific diagnosis that is being evaluated, monitored, or treated as if it exists) are acceptable and can be coded in the inpatient setting, when documented at the
time of discharge.
Thank you,
KEISHA Diaz RN
CDI Specialist
available via tiger text
Please use your independent medical judgment in providing your response.
*Source: National Pressure Ulcer Advisory Panel (NPUAP)
[2023-11-18 12:00] VITALS: BP 151/71
[2023-11-18 15:00] VITALS: BP 118/75
[2023-11-18] MEDS: NON-FORMULARY ITEM 1 MG PO (20:33)
[2023-11-18] MEDS: VITAMIN C 500 MG PO (21:38)
[2023-11-18] MEDS: NEURONTIN 300 MG PO (21:38)
[2023-11-18 22:02] LABS: Urine Albumin Negative (Neg - Trace); Urine Bilirubin Negative (Negative); Urine Character Slightly Cloudy (Clear); Urine Color Yellow; Urine Glucose Negative (Negative); Urine Ketone Negative (Negative); Urine Leukocyte Negative (Negative); Urine Nitrite Negative (Negative); Urine Occult Blood 1+ (Negative); Urine Urobilinogen Negative (Neg - 1+)
[2023-11-18 22:13] LABS: Urine Squamous Cell >30 /LPF (Few)
[2023-11-18 22:14] LABS: Urine Bacteria Many (Negative); Urine Red Blood Cell 0-2 /HPF (0-2)
[2023-11-18 23:30] VITALS: BP 127/66
[2023-11-19 06:00] VITALS: BMI 50.7
[2023-11-19 07:08] VITALS: BP 139/74
[2023-11-19] MEDS: LOVENOX 60 MG SC ×2 (08:27→20:22)
[2023-11-19] MEDS: DITROPAN 5 MG PO ×2 (08:28→20:22)
[2023-11-19] MEDS: FEOSOL 325 MG PO (08:28)
[2023-11-19] MEDS: TRANDATE 300 MG PO ×2 (08:28→20:20)
[2023-11-19] MEDS: VITAMIN D3 (cholecalciferol) 25 MCG PO (08:29)
[2023-11-19] MEDS: NON-FORMULARY ITEM 10 MG PO ×2 (08:30→20:19)
[2023-11-19] MEDS: PROCARDIA XL (EXTENDED RELEASE) 30 MG PO (08:30)
--- NOTE | 2023-11-19 09:36 | W.PN.HOSP.TC ---
Today's Communication/Plan
-
Medically stable for discharge pending home rehab set-up
Assessment / Plan
Assessment / Plan
Physical Exam
General: No acute distress, appears comfortable at this time.
CVS: S1-S2 normal
Chest: CTA B/L
Abdomen: Soft, NT / Bowel sounds present
Extremities: swollen lower ext's b/l chronic
Neuro: AOx3
58-year-old female with history of relapsing remitting multiple sclerosis presented to the hospital with worsening ambulatory dysfunction and multiple falls in the past 2 months. She denies any fever, diarrhea, URI.
L ankle Xray: No acute abnormalities. Postoperative changes consistent with prior repair of bimalleolar fracture
CT brain: There are no acute intracranial abnormalities. There is diffuse cortical atrophy with nonspecific white matter changes.
CXR: No active cardiopulmonary disease.
MRI of the thoracic and Lumbar spine-Slightly progressed nonenhancing demyelinating lesions scattered throughout the thoracic spinal cord.Severe spinal canal stenosis at L4-5, slightly progressed.Trace bilateral pleural effusions.
Partially visualized left thyroid lobe nodule measures up to 1.1 cm. Consider outpatient workup with dedicated thyroid ultrasound recommended
#B/L Leg Weakness due to suspected MS Flare:
-presented with ambulatory dysfunction, falls, generalized weakness (acute on Chronic R>L leg weakness increased) and Right Eye Visual Field Deficit
-COVID/flu NEG
-appreciate neuro eval
-MRI L and T spines appreciated slightly progressed scattered demyelinating lesions, severe spinal stenosis L4-L5, partial visualization Left Thyroid lobe nodule 1.1 cm
-s/p 20mg IV Decadron in ER followed by 1g IV Solumedrol 11/13/23 and 11/14/23, currently off steroids as per neuro recc's
-Currently on Ocrevus Q6mo last received 08/27
-Continue Gabapentin and Ampyra 20mg daily
-Continue Baclofen
-PT/OT
-Physiatry eval appreciated Acute Rehab however no beds available at this time as per case mgmt noted below.
-Home Rehab Set up as per patient's preference
Swelling lower ext b/l chronic lymphedema
venous US neg for DVT
Mild Hypercalcemia resolved
Vit D wnl
PTH level wnl
#Depression
denies suicidal or homicidal ideation
Psych eval, per pt's request, appreciated
#Thyroid nodule- OP USS
Pt aware
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
since improved but remains present
outpt Ophthalmology follow up recommended
#Urinary Urgency Frequency Incontinence
recent urinalysis neg for UTI, repeat urinalysis not suggestive UTI, culture pending
discussed with nurse, no significant retention
suspect overactive bladder, oxybutynin low dose started 5 mg BID, cont
symptoms since improved
#Left Ankle Pain: XR without fx, cont PT/OT
#Essential HTN: cont cont BB/CCB
#Spasticity: Continue home baclofen and gabapentin
#Severe spinal canal stenosis
#Morbid Obesity due to excess calories: Encourage weight loss.
#FULL CODE
#Lovenox for DVT Prophylaxis
Case mgmt consult appreciated Acute [facility] no beds available at this time, patient prefers home rehab as opposed to attempting another facilty
I spent a total of 53 minutes with the patient or on the floor. More than 50% of this time involved counseling and coordination of care.
Anticipated Discharge: Within 24 hours
Subjective/Interval History
-
Date of Service: November 19, 2023
Reports feeling well. Urinary incontinence/urgency improved. Denies new acute issues at this time. Son Kraig present during evaluation.
Objective Data
-
Vital Signs:
Vital Signs
Temp Pulse Resp BP Pulse Ox
98.1 F 86 16 139/74 97
11/19/23 07:08 11/19/23 08:30 11/19/23 07:08 11/19/23 08:30 11/19/23 07:08
I&O
11/18/23 11/19/23 11/20/23
06:59 06:59 06:59
Intake Total 960 / 960 360 / 360
Balance 960 / 960 360 / 360
[2023-11-19 15:05] VITALS: BP 149/73
--- NOTE | 2023-11-19 16:21 | CM ---
Reviewed chart, spoke with Kaylyn in admissions at [facility] who stated that she has no beds available. Per discussion with Kaylyn, she does not want to go to [facility] which is the only facility that has beds.
Patient opting to return home.
Attending updated.
Plan: Case management will continue to follow and assist with discharge planning. Home when stable.
[2023-11-19] MEDS: NEURONTIN 300 MG PO (20:20)
[2023-11-19] MEDS: VITAMIN C 500 MG PO (20:20)
[2023-11-19] MEDS: TYLENOL 1000 MG PO (20:26)
[2023-11-19 23:20] VITALS: BP 160/67
[2023-11-20 05:16] VITALS: BMI 50.9
[2023-11-20 07:00] VITALS: BP 151/72
--- NOTE | 2023-11-20 07:02 | W.PN.HOSP.TC ---
Addendum entered and electronically signed by Anthony Wolfe MD 11/21/23 18:51:
Sacrum Stage 1 Pressure Injury, POA
Original Note:
Today's Communication/Plan
-
discharge
Assessment / Plan
Assessment / Plan
Physical Exam
General: No acute distress, appears comfortable at this time.
CVS: S1-S2 normal
Chest: CTA B/L
Abdomen: Soft, NT / Bowel sounds present
Extremities: swollen lower ext's b/l chronic
Neuro: AOx3
58-year-old female with history of relapsing remitting multiple sclerosis presented to the hospital with worsening ambulatory dysfunction and multiple falls in the past 2 months. She denies any fever, diarrhea, URI.
L ankle Xray: No acute abnormalities. Postoperative changes consistent with prior repair of bimalleolar fracture
CT brain: There are no acute intracranial abnormalities. There is diffuse cortical atrophy with nonspecific white matter changes.
CXR: No active cardiopulmonary disease.
MRI of the thoracic and Lumbar spine-Slightly progressed nonenhancing demyelinating lesions scattered throughout the thoracic spinal cord.Severe spinal canal stenosis at L4-5, slightly progressed.Trace bilateral pleural effusions.
Partially visualized left thyroid lobe nodule measures up to 1.1 cm. Consider outpatient workup with dedicated thyroid ultrasound recommended
#B/L Leg Weakness due to suspected MS Flare:
-presented with ambulatory dysfunction, falls, generalized weakness (acute on Chronic R>L leg weakness increased) and Right Eye Visual Field Deficit
-COVID/flu NEG
-appreciate neuro eval
-MRI L and T spines appreciated slightly progressed scattered demyelinating lesions, severe spinal stenosis L4-L5, partial visualization Left Thyroid lobe nodule 1.1 cm
-s/p 20mg IV Decadron in ER followed by 1g IV Solumedrol 11/13/23 and 11/14/23, currently off steroids as per neuro recc's
-Currently on Ocrevus Q6mo last received 08/27
-Continue Gabapentin and Ampyra 20mg daily
-Continue Baclofen
-PT/OT
-Physiatry eval appreciated Acute Rehab however no beds available at this time as per case mgmt noted below.
-Home Rehab Set up as per patient's preference
Swelling lower ext b/l chronic lymphedema
venous US neg for DVT
Mild Hypercalcemia resolved
Vit D wnl
PTH level wnl
#Depression
denies suicidal or homicidal ideation
Psych eval, per pt's request, appreciated
#Thyroid nodule- OP USS
Pt aware
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
since improved but remains present
outpt Ophthalmology follow up recommended
#Urinary Urgency Frequency Incontinence
recent urinalysis neg for UTI, repeat urinalysis not suggestive UTI, culture pending
discussed with nurse, no significant retention
suspect overactive bladder, oxybutynin low dose started 5 mg BID, cont
#Left Ankle Pain: XR without fx, cont PT/OT
#Essential HTN: cont cont BB/CCB
#Spasticity: Continue home baclofen and gabapentin
#Severe spinal canal stenosis
#Morbid Obesity due to excess calories: Encourage weight loss.
#FULL CODE
#Lovenox for DVT Prophylaxis
Medically stable for discharge home with home services and outpatient follow up recommendations.
Total Time Preparing Discharge ___50____ minutes including examination of the patient, summary of the hospital stay, instructions for continuing care to all relevant caregivers; and preparation of discharge records, prescriptions, and referral
forms if necessary.
Anticipated Discharge: Today
Subjective/Interval History
-
Date of Service: November 20, 2023
Reports feeling well. Urinary urgency frequency persists but patient reports some improvement with new medication oxybutynin.
Objective Data
-
Vital Signs:
Vital Signs
Temp Pulse Resp BP Pulse Ox
98.2 F 81 18 160/67 97
11/19/23 23:20 11/19/23 23:20 11/19/23 23:20 11/19/23 23:20 11/19/23 23:20
I&O
11/19/23 11/20/23 11/21/23
06:59 06:59 06:59
Intake Total 360 / 360 480 / 480
Output Total 500 / 500
Balance 360 / 360 -20 / -20
[2023-11-20] MEDS: PROCARDIA XL (EXTENDED RELEASE) 30 MG PO (09:44)
[2023-11-20] MEDS: FEOSOL 325 MG PO (09:45)
[2023-11-20] MEDS: TRANDATE 300 MG PO (09:45)
[2023-11-20] MEDS: LOVENOX 60 MG SC (09:45)
[2023-11-20] MEDS: VITAMIN D3 (cholecalciferol) 25 MCG PO (09:45)
[2023-11-20] MEDS: DITROPAN 5 MG PO (09:45)
[2023-11-20] MEDS: NON-FORMULARY ITEM 10 MG PO (09:46)
--- NOTE | 2023-11-20 11:47 | CM ---
Addendum entered by Marguerite Conde 11/20/23 12:26:
Accepted by [facility] for home care needs
Pt reports she will have ride home at d/c
Plan - home with [facility] care when medically stable
Fax - [phone]
Original Note:
Case management following for d/c planning
Received consult for d/c planning
Pt for acute rehab - beds not available at [facility] - prefers to go home
Has FF set-up at home and lives with family members
Discussed HH - prefers [facility]
Referral sent in Care Port
Plan - home with home services - waiting on acceptance from [facility]
[2023-11-20 15:00] VITALS: BP 145/65
--- NOTE | 2023-11-20 15:44 | W.DCSUMMARY ---
Discharge Summary
Discharge Data
Date of Admission: 11/13/23
Date of Discharge: 11/20/23
-
Pending Results: No
Hospital Course
58F with history of relapsing remitting multiple sclerosis presented to the hospital with worsening ambulatory dysfunction and multiple falls in the past 2 months. She denied any fever, diarrhea, or URI symptoms. L ankle Xray: No acute
abnormalities. Postoperative changes consistent with prior repair of bimalleolar fracture. CT brain: There are no acute intracranial abnormalities. There is diffuse cortical atrophy with nonspecific white matter changes. CXR: No active
cardiopulmonary disease. MRI of the thoracic and lumbar spine- Slightly progressed nonenhancing demyelinating lesions scattered throughout the thoracic spinal cord. Severe spinal canal stenosis at L4-5, slightly progressed. Trace bilateral
pleural effusions. Partially visualized left thyroid lobe nodule measured up to 1.1 cm. Outpatient workup with dedicated thyroid ultrasound recommended. B/L Leg Weakness due to suspected MS Flare, presented with ambulatory dysfunction, falls,
generalized weakness (acute on Chronic R>L leg weakness increased) and Right Eye Visual Field Deficit. COVID/flu NEG. Received on 20mg IV Decadron in ER followed by 1g IV Solumedrol 11/13/23 and 11/14/23. Steroid treatment was completed as per
neuro recc's. Currently on Ocrevus Q6mo last received 08/27. Home Gabapentin, Baclofen, and Ampyra 20mg daily were continued. Physiatry evaluated and recommended Acute Rehab however no beds available at the time. Home Rehab was set up as per
patient's preference. Swelling lower ext b/l chronic lymphedema, venous US neg for DVT. Mild Hypercalcemia resolved. Vit D wnl. PTH level wnl. Patient reported right eye blind spot started Sep 15
since improved but remained present. Outpt Ophthalmology follow up recommended. Urinary Urgency Frequency Incontinence, recent urinalysis neg for UTI, repeat urinalysis not suggestive UTI. Discussed with nurse, no significant retention, suspect
overactive bladder, oxybutynin low dose was started 5 mg BID with subsequent mild improvement noted. Medically stable, patient was discharged home with home services and outpatient follow up recommendations.
Discharge Plan
-
Patient Disposition: Home with Home Care
Discharge Diagnosis/Procedures: Multiple Sclerosis Pseudo Flare
Chronic Lymphedema lower extremities
Mild Hypercalcemia resolved
Depression
Thyroid Nodule
Abnormal Thyroid Function test, TSH low but T4 hormone within normal limits
Right Eye Blind Spot present since Sep 15, 2023
Overactive Bladder
Hypertension
Spasticity
Severe Spinal Canal Stenosis
Morbid Obesity
Condition: Fair
Diet: Regular
Activity: As tolerated and With Walker
Driving Restrictions: As prior to admission
Bathing Restrictions: None
Blood Work: Please repeat thyroid function test with primary care provider or Endocrinology in 2-4 weeks of discharge
Others Tests: Thyroid US in 1 month of discharge with primary care provider or Endocrinology to evaluate 1.1 cm thyroid nodule
Other Services: VN, PT and OT
Activity Restrictions/Additional Instructions:
Please follow up with primary care provider in 1 week of discharge, Ophthalmology in 1-2 weeks of discharge, Endocrinology in 2-4 weeks of discharge. Please keep your appointments with all healthcare providers involved in your care.
Oxybutynin has been prescribed for overactive bladder.
Please take medications as prescribed/recommended and follow up with primary care provider and/or other healthcare provider involved in your care for refills and/or further adjustment to your medication regimen as necessary.
Instructions: Urinary Incontinence (DC), Bladder Spasms (DC)
Referrals:
Christen Diaz MD [Consulting Staff] - in two to four weeks
Nemesio Watters DO [Family Provider] - in one week
Prescriptions:
New
oxybutynin chloride 5 mg Tablet
5 mg PO BID 30 Days Qty: 60 0RF
Continued
dalfampridine [Ampyra] 10 MG tablet extended release 12 hr
10 mg PO BID
Ocrevus 300 MG/10 ML solution
600 mg IV [id number]
nifedipine 30 MG tablet extended release
30 mg PO DAILY
ascorbic acid (vitamin C) [Vitamin C] 500 MG tablet
500 mg PO HS
cholecalciferol (vitamin D3) 1,000 UNITS tablet
5,000 units PO DAILY
gabapentin 300 mg Capsule
300 mg PO HS
labetalol 300 mg Tablet
300 mg PO BID
ferrous sulfate [iron] 325 mg (65 mg iron) Tablet
325 mg PO DAILY
baclofen 10 mg tablet
10 mg PO PRN PRN (Reason: as needed)
acetaminophen [Pain Relief ES (acetaminophen)] 500 mg tablet
1,000 mg PO TID PRN (Reason: Pain)
Discharge Orders:
Discharge Patient (As Directed); Ordered 11/20/23
Ordered By: Anthony Wolfe
Discharge Date and Time
Discharge Date/Time: 11/20/23 17:15
Print Language: [id number]
== END 2023-11-20 17:15 | disposition home health service (06) | DRG 59 ==
LOC: 3 WEST ACU 00:43
PROVIDERS: Clinical Nurse Specialist Family Health; Hospitalist; ADMITTING PHYSICIAN Internal Medicine; ATTENDING PHYSICIAN Internal Medicine; CONSULT PHYSICIAN Physical Medicine & Rehabilitation; CONSULT PHYSICIAN Student in an Organized Health Care Education/Training Program; EMERGENCY PHYSICIAN Emergency Medicine; FAMILY PHYSICIAN Family Medicine; OTHER PHYSICIAN Psychiatry & Neurology Psychiatry
DX: G35 Multiple sclerosis (principal); J90 Pleural effusion, not elsewhere classified; Z68.43 Body mass index [BMI] 50.0-59.9, adult; N17.9 Acute kidney failure, unspecified; R53.1 Weakness; D64.9 Anemia, unspecified; I10 Essential (primary) hypertension; G62.9 Polyneuropathy, unspecified; E86.0 Dehydration; M48.061 Spinal stenosis, lumbar region without neurogenic claudication; H53.40 Unspecified visual field defects; R29.6 Repeated falls; E83.52 Hypercalcemia; N32.81 Overactive bladder; H54.61 Unqualified visual loss, right eye, normal vision left eye; F32.A Depression, unspecified; I89.0 Lymphedema, not elsewhere classified; L89.151 Pressure ulcer of sacral region, stage 1; M25.572 Pain in left ankle and joints of left foot; E04.1 Nontoxic single thyroid nodule; E66.01 Morbid (severe) obesity due to excess calories; Z87.440 Personal history of urinary (tract) infections; Z11.52 Encounter for screening for COVID-19; Z82.49 Family history of ischemic heart disease and other diseases of the circulatory system; Z88.5 Allergy status to narcotic agent; Z91.81 History of falling; Z63.4 Disappearance and death of family member; Z72.820 Sleep deprivation; Z75.1 Person awaiting admission to adequate facility elsewhere
CPT/HCPCS: 51701; 70450; 71046; 72157; 72158; 73610; 80048; 80053; 81003; 81015; 82306; 82607; 82962; 83735; 83970; 84100; 84439; 84443; 85025; 85027; 87086; 87502; 87811; 93005; 93970; 97116; 97163; 97167; 97530; 99285; A9575

== ENCOUNTER 2024-02-25 12:03 | Emergency (ER) | payer BC, SELFPAY ==
[2024-02-25] VITALS (8 sets, daily range): BP systolic 119–160; BP diastolic 68–84; BMI 50.3; BMI 50.7
--- NOTE | 2024-02-25 15:10 | ED.GENMED ---
History of Present Illness
General
Chief Complaint: Weakness
Source: patient and family
Time Seen by Provider: 02/25/24 14:13
History of Present Illness
History of Present Illness:
This patient is a 58-year-old female with a history of MS who presents emergency department as directed by her neurologist. She was due for her biannual infusion related to MS but was unable to make her appointment because of increased difficulty
walking and standing today. She states that she is very affected by heat and humidity, and suspects this may be related to this. She actually feels better now compared to earlier this morning. She denies other or new complaints. She denies
fever, chills, chest pain, shortness of breath, headache, dizziness, new numbness or tingling, or other complaints.
Past History
Past History
ED Past Medical History: HTN and Other (Multiple sclerosis (relapsing-remitting), anemia, Neuropathy, Hemorrhoids, UTI, Anemia, Numbness arms and leg, )
ED Past Surgical History: , Gynecological (ovarian surgeries x 3, Cervix Surgery) and Orthopedic (R shoulder surgery, left ankle fracture with surgery)
Social History
Tobacco: Non-smoker
Alcohol: None
Drug: None
Personal:
Living: with family
Employment: Employed
Family History
Family History: Other (reviewed and Noncontributory)
Phy Exam
Physical Exam
Physical Exam:
GENERAL: Alert , in no apparent distress, obese, pleasant
EYE: pupils equal and reactive, no photophobia
NECK: Supple, no significant adenopathy.
ENT: o/p clr, mmm.
CARDIAC: Regular rate and rhythm .
LUNGS: Clear breath sounds bilaterally, no acute respiratory distress, no wheezes/rales/rhonchi
ABDOMEN: Soft, without focal tenderness, no r/g, no cvat
NEUROLOGICAL: Alert and oriented, generalized extremity weakness, moves all extremities equally, voice clear, cranial nerves II through XII intact, sensation intact to light touch
SKIN: Warm and dry, skin intact.
MUSCULOSKELETAL: No edema, well perfused.
PSYCH: Normal and appropriate interaction.
Course
Orders/Labs/Results
Orders:
Orders
02/25/24 16:30
CT Head W/o Iv Contrast Urgent
Comment:
Reason For Exam: hx MS, worsening sxs
02/25/24 17:33
Complete Blood Count/No Diff Urgent
Comprehensive Metabolic Panel Urgent
02/25/24 18:03
MethylPREDNISolone. [Solu-Medrol] 1,000 mg 0.9% Sodium Chloride 250 ml [Nss] 250 ml IV NOW
Abnormal Lab Results
02/25/24
17:33
MPV 10.5 H fL
(7.4-10.4)
Glucose 100 H mg/dl
(70-99)
02/25/24 17:33
02/25/24 17:33
Vital Signs
Initial and Last Documented VS:
Initial Vital Signs
Temp Pulse Resp BP Pulse Ox
97.8 F 88 16 141/68 98
02/25/24 12:10 02/25/24 12:10 02/25/24 12:10 02/25/24 12:10 02/25/24 12:10
Last Documented Vital Signs
Temp Pulse Resp BP Pulse Ox
97.9 F 85 18 137/74 95
02/25/24 14:06 02/25/24 18:30 02/25/24 18:30 02/25/24 18:00 02/25/24 18:30
*Critical Care Note
Total Time (30-74mins, 75-104mins- exclusive of procedures): Not Applicable
Update Note
Update Note:
Patient presents to the Emergency Department with trouble walking or standing
Number and Complexity of Problems Addressed at the Encounter
� Chronic conditions affecting care:
� Acute Exacerbation and/or Progression of Chronic Illness:
� Differential Diagnosis includes: but not limited to MS exacerbation, etc
Amount and/or Complexity of Data to be Reviewed and Analyzed
� I performed an independent evaluation of and my interpretation is:
EKG:
CT:
Xrays:
Laboratory Studies:unremarkable
Other:
� Review of other/old records reveals:
� Clinical information was obtained by an independent historian: Son who is bedside
� Prescriptions/Medications Considered but not given:
� Further testing considered but not performed:
Risk of Complications and/or Morbidity or Mortality of Patient Management
� Social determinants of health affecting care:
� Discussion with other providers (PCP, Hospitalists, Consultants, etc):
� Escalation of care including admission/observation vs risk of discharge considered: Case discussed with Dr. Dominique via [place] text, she recommends the patient be seen by neurology in the emergency department to assess regarding
whether or not she is having an MS flare. Dr. Sunday Tena notified
Pt seen by Dr Bullard, ct reivewed, recommends 1 gm solumedrol and d/c with f/u, pt agreeable to this plan.
ED Attending Note
-
Portions of this chart may have been created with voice recognition software.� Occasional wrong word or��sound alike� substitutions may have occurred due to the inherent limitations of voice recognition software.
Discharge Plan
Departure
Patient Disposition: Home (Routine Discharge)
Date of Disposition: 02/25/24
Time of Disposition: 19:00
Patient with high blood pressure during this ER visit?: Yes
Condition: Good
Discharge Problem:
Multiple sclerosis
Instructions: Multiple sclerosis in adults, BLOOD PRESSURE
Prescriptions:
No Action
dalfampridine [Ampyra] 10 MG tablet extended release 12 hr
10 mg PO BID
Ocrevus 300 MG/10 ML solution
600 mg IV [id number]
nifedipine 30 MG tablet extended release
30 mg PO DAILY
ascorbic acid (vitamin C) [Vitamin C] 500 MG tablet
500 mg PO HS
cholecalciferol (vitamin D3) 1,000 UNITS tablet
5,000 units PO DAILY
gabapentin 300 mg Capsule
300 mg PO HS
labetalol 300 mg Tablet
300 mg PO BID
ferrous sulfate [iron] 325 mg (65 mg iron) Tablet
325 mg PO DAILY
baclofen 10 mg tablet
10 mg PO PRN PRN (Reason: as needed)
acetaminophen [Pain Relief ES (acetaminophen)] 500 mg tablet
1,000 mg PO TID PRN (Reason: Pain)
oxybutynin chloride 5 mg Tablet
5 mg PO BID 30 Days Qty: 60 0RF
Referrals:
Nemesio Watters, DO [Family Provider] -
Activity Restrictions/Additional Instructions:
IF YOU DEVELOP INCREASING/NEW WEAKNESS, FEVER, CHILLS, VOMITING, CHEST PAIN, TROUBLE BREATHING, OR OTHER WORRISOME SIGNS, GO TO THE ER IMMEDIATELY!
Interventions
Interventions:
*Risk Screen - Suicide Last Done: 02/25/24 12:10
*Neglect/Abuse Screening Last Done: 02/25/24 12:10
ED- Fall Risk Assessment Last Done: 02/25/24 12:10
ED- Cardiac Assessment Last Done: 02/25/24 14:04
ED- Neurological Assessment Last Done: 02/25/24 14:04
ED- Pulmonary Assessment Last Done: 02/25/24 14:04
Discharge Date and Time
Print Language: THAI
[2024-02-25 17:46] LABS: Hematocrit 37.3 % (37.0-47.0); Hemoglobin 12.6 g/dL (12.0-16.0); Mean Corp Hgb Conc. 33.8 g/dL (33.0-37.0); Mean Corpuscular Volume 85.7 fL (81.0-99.0); Mean Platelet Volume 10.5 fL (7.4-10.4); Platelet Count 261 10^3/uL (130-400); Red Blood Cell Count 4.35 10^6/uL (4.20-5.40); Red Cell Dist. Width 13.1 % (11.5-14.5); White Blood Cell Count 8.2 10^3/uL (4.8-10.8)
[2024-02-25 17:55] LABS: ALT (SGPT) 17 U/L (0-35); AST (SGOT) 25 U/L (14-36); Albumin 4.7 g/dl (3.5-5.0); Alkaline Phosphatase 61 U/L (38-126); Blood Urea Nitrogen 17 mg/dl (7-17); Carbon Dioxide 29 mmol/L (22-30); Chloride 105 mmol/L (98-107); Estimated Creatinine Clearance 112 ml/min; Glucose 100 mg/dl (70-99); Potassium 4.4 mmol/L (3.5-5.1); Sodium 139 mmol/L (135-145); Total Bilirubin 0.8 mg/dl (0.2-1.3); eGFR > 60.00
[2024-02-25] MEDS: SOLU-MEDROL 258 MG IV (18:23)
== END 2024-02-25 20:49 | disposition home or self-care (01) ==
LOC: EMR 12:03
PROVIDERS: EMERGENCY PHYSICIAN Emergency Medicine; FAMILY PHYSICIAN Family Medicine
DX: G35 Multiple sclerosis (principal); I10 Essential (primary) hypertension; D64.9 Anemia, unspecified; Z87.19 Personal history of other diseases of the digestive system; Z87.440 Personal history of urinary (tract) infections
CPT/HCPCS: 99284; 96365; 70450; 80053; 85027

== ENCOUNTER → 2024-04-07 13:09 | Outpatient (REF) | payer BC, SELFPAY | LOC: HWRAD 13:09 | PROVIDERS: ATTENDING PHYSICIAN Urology; FAMILY PHYSICIAN Family Medicine | DX: N31.9 Neuromuscular dysfunction of bladder, unspecified (principal); N39.41 Urge incontinence; E83.52 Hypercalcemia; R94.6 Abnormal results of thyroid function studies | CPT/HCPCS: 76536; 76770; 76856 ==

== ENCOUNTER → 2024-05-16 17:36 | Outpatient (REF) | payer BC, SELFPAY | LOC: MRI 3T 17:36 | PROVIDERS: ATTENDING PHYSICIAN Psychiatry & Neurology Neurology; FAMILY PHYSICIAN Family Medicine | DX: G35 Multiple sclerosis (principal); R20.2 Paresthesia of skin | CPT/HCPCS: 70553; 72156; A9575 ==

== ENCOUNTER 2025-06-25 15:11 | Emergency (ER) | payer BC, SELFPAY ==
[2025-06-25 15:21] VITALS: BP 149/72
[2025-06-25 16:03] LABS: Hematocrit 34.6 % (37.0-47.0); Hemoglobin 11.2 g/dL (12.0-16.0); Mean Corp Hgb Conc. 32.4 g/dL (33.0-37.0); Mean Corpuscular Volume 88.7 fL (81.0-99.0); Nucleated Red Blood Cells % 0 %; Platelet Count 298 10^3/uL (130-400); Red Cell Dist. Width 13.4 % (11.5-14.5)
--- NOTE | 2025-06-25 16:17 | ED.GENMED ---
History of Present Illness
General
Chief Complaint: Rectal Bleeding
Time Seen by Provider: 06/25/25 16:17
History of Present Illness
History of Present Illness:
FOCUSED PAST MEDICAL HISTORY
- MS
REVIEW OF OLD RECORDS
- The patient was admitted with MS exacerbation in November 2023.
Note:
CHIEF COMPLAINT(S)
Rectal bleeding.
HISTORY OF PRESENT ILLNESS
The patient is a 60-year-old female who presents with complaints of rectal bleeding associated with hemorrhoids. The bleeding has been significant, occurring even without defecation. The patient has a history of a colectomy, performed over five
years ago, by a surgeon whose name is not recalled but possibly performed at [facility]. The patient reports no current pain but is awaiting assistance with a walker. Hemoglobin level upon this visit was reported at 11.3 g/dL, comparable to
previous levels according to recent lab results. The patient expresses concern about the bleeding, warranting further evaluation of the rectal bleeding.
PHYSICAL EXAM
General: Alert, no acute distress.
Skin: Warm, dry.
Head: Normocephalic, atraumatic.
Neck: Supple, trachea midline.
Eye Ears, Nose, Mouth and Throat: Oral mucosa moist.
Cardiovascular: Normal peripheral perfusion, no edema.
Respiratory: Respirations are non-labored.
Gastrointestinal: Abdomen nondistended. Soft abdomen, no significant tenderness, some mild friable mucosa related to internal hemorrhoids on anal examination but no significant blood loss
Back: Normal range of motion, normal alignment.
Musculoskeletal: Normal range of motion, normal strength.
Neurological: Generalized weakness noted including more so in the lower extremities
Psychiatric: Cooperative, appropriate mood & affect.
PLAN
- Await the arrival of the patients walker for assistance with mobility.
- Contact a colorectal surgeon for further evaluation and management of the rectal bleeding.
- Assess the patients condition following the examination and provide further care as necessary.
DIFFERENTIAL DIAGNOSIS
The Differential Diagnosis includes, in no particular order and is not limited to:
1. Hemorrhoids
2. Colorectal carcinoma
3. Diverticular bleeding
4. Anal fissure
5. Inflammatory bowel disease
6. Gastrointestinal angiodysplasia
7. Coagulation disorders
8. Colorectal polyps
9. Infectious colitis
10. Ischemic colitis
LABS
- White count normal, hemoglobin 11.2 I reviewed records, in January 2024 hemoglobin was 12.6 and in 2022 it was 11.3-12.4
UPDATE
- I communicated with Dr. Mason and his office will reach out and he will see in follow-up
SUMMARY OF ENCOUNTER
The patient, a 60-year-old female, was seen in the emergency department for significant rectal bleeding associated with hemorrhoids. The bleeding was noted even without defecation. The patients hemoglobin level was measured at 11.3 g/dL, similar to
previous levels over the last couple of years despite being slightly lower than the most recent test. An exam indicated irritation in the mucosa, with bright red blood suggestive of hemorrhoids. Contact was made with a colorectal surgeon,
Isabella, who will arrange follow-up care. Outpatient management was deemed appropriate unless symptoms worsened, in which case the patient was advised to return for re-evaluation.
DISPOSITION
Discharge.
ASSESSMENT
Rectal bleeding likely due to external hemorrhoids.
MANAGEMENT OF THE PATIENTS CARE WAS DISCUSSED WITH
Discussion held with colorectal surgeon Dr. Mason for follow-up care.
PLAN
1. Obtain follow-up care with Dr. Mason, colorectal surgeon.
2. Encourage the patient to return for further evaluation if symptoms worsen.
INDEPENDENT REVIEW OF LABS AND INTERPRETATION OF TESTS
My independent review of the hemoglobin level is 11.3 g/dL, slightly lower than previous, yet consistent with the patients historical levels.
PATIENT EDUCATION AND COUNSELING
The patient was informed about the nature of the hemorrhoid-related bleeding and reassured regarding the current plan for outpatient management, emphasizing that they should return to the emergency department if symptoms worsen.
FOLLOW-UP INSTRUCTIONS
The patient was advised to follow up with Dr. Ellis office for further management of hemorrhoids.
MEDICAL DECISION MAKING
-Complexity of Data Reviewed: Chronic conditions affecting care include a history of colectomy and hemorrhoids. Differential diagnosis includes:
1. Hemorrhoids
2. Colorectal carcinoma
3. Diverticular bleeding
4. Anal fissure
5. Inflammatory bowel disease
6. Gastrointestinal angiodysplasia
7. Coagulation disorders
8. Colorectal polyps
9. Infectious colitis
10. Ischemic colitis
-Data:
Category 1
Reviewed the patients colonoscopy report from 2020, noting a polyp removed from the transverse colon and presence of mild external hemorrhoids.
Category 2
My independent interpretation of the recent physical examination of hemorrhoids shows irritation with bright red bleeding.
Category 3
Discussion of management with Dr. Mason, colorectal surgeon, who will oversee follow-up care.
-Risk:
Consideration of Admission/Observation: Escalation of care including admission/observation was considered given the complexity and risk of the patients presenting complaint and exam findings. However, ultimately I feel the patient is safe for
outpatient management with close follow-up. Reasoning: Work-up reassuring, does not reveal any acute life/organ-threatening processes, patients symptoms well controlled upon reevaluation, reexamination is reassuring, vitals are stable, patient
agreeable with discharge, reliable for follow-up.
DIAGNOSIS
Lower GI bleeding related to hemorrhoids
Past History
Past History
ED Past Medical History: HTN and Other (Multiple sclerosis (relapsing-remitting), anemia, Neuropathy, Hemorrhoids, UTI, Anemia, Numbness arms and leg, )
ED Past Surgical History: , Gynecological (ovarian surgeries x 3, Cervix Surgery) and Orthopedic (R shoulder surgery, left ankle fracture with surgery)
Social History
Tobacco: Non-smoker
Alcohol: None
Drug: None
Personal:
Living: with family
Employment: Employed
Family History
Family History: Other (reviewed and Noncontributory)
Phy Exam
Physical Exam
Physical Exam:
See HPI
Course
Orders/Labs/Results
Orders:
Orders
06/25/25 15:30
Type And Crossmatch [Type+Screen] Urgent
Complete Blood Count/With Diff Urgent
Comprehensive Metabolic Panel Urgent
Abnormal Lab Results
06/25/25
15:30
RBC 3.90 L 10^6/uL
(4.20-5.40)
Hgb 11.2 L g/dL
(12.0-16.0)
Hct 34.6 L %
(37.0-47.0)
MCHC 32.4 L g/dL
(33.0-37.0)
MPV 11.0 H fL
(7.4-10.4)
Absolute Neuts (auto) 6.6 H 10^3/uL
(1.4-6.5)
Absolute Monos (auto) 0.8 H 10^3/uL
(0.1-0.6)
Lymphocytes % 14.2 L %
(20.5-51.1)
Carbon Dioxide 31 H mmol/L
(22-30)
06/25/25 15:30
06/25/25 15:30
Vital Signs
Initial and Last Documented VS:
Initial Vital Signs
Temp Pulse Resp BP Pulse Ox
36.7 C 82 18 149/72 99
06/25/25 15:21 06/25/25 15:21 06/25/25 15:21 06/25/25 15:21 06/25/25 15:21
Last Documented Vital Signs
Temp Pulse Resp BP Pulse Ox
36.7 C 82 18 149/72 99
06/25/25 15:21 06/25/25 15:21 06/25/25 15:21 06/25/25 15:21 06/25/25 16:19
*Pulse Oximetry
SaO2: 99
Oxygen Mode of Delivery: Room air
Patient hypoxic: no
*Critical Care Note
Total Time (30-74mins, 75-104mins- exclusive of procedures): Not Applicable
ED Attending Note
-
Portions of this chart may have been created with voice recognition software.� Occasional wrong word or��sound alike� substitutions may have occurred due to the inherent limitations of voice recognition software.
Discharge Plan
Departure
Patient Disposition: Home (Routine Discharge)
Date of Disposition: 06/25/25
Time of Disposition: 16:52
Patient with high blood pressure during this ER visit?: Yes
Discharge Problem:
Bleeding hemorrhoids
Instructions: Hemorrhoids (DC), BLOOD PRESSURE
Prescriptions:
No Action
dalfampridine [Ampyra] 10 MG tablet extended release 12 hr
10 mg PO BID
Ocrevus 300 MG/10 ML solution
600 mg IV [id number]
nifedipine 30 MG tablet extended release
30 mg PO DAILY
ascorbic acid (vitamin C) [Vitamin C] 500 MG tablet
500 mg PO DAILY
cholecalciferol (vitamin D3) 1,000 UNITS tablet
5,000 units PO DAILY
gabapentin 300 mg Capsule
300 mg PO HS
labetalol 300 mg Tablet
300 mg PO BID
ferrous sulfate [iron] 325 mg (65 mg iron) Tablet
325 mg PO DAILY
Visbiome 112.5 billion cell Capsule
1 cap PO DAILY
Gemtesa 75 mg Tablet
75 mg PO DAILY
Referrals:
Nemesio Mason MD [Active, ColoRectal]
Nemesio Watters DO [Family Provider, Family Practice]
Activity Restrictions/Additional Instructions:
Your hemoglobin level and vital signs are stable. Your hemoglobin today is 11.2. Follow-up with Dr. Mason.
Interventions
Interventions:
*Risk Screen - Suicide Last Done: 06/25/25 15:21
*General Assessment Last Done: 06/25/25 15:21
*Neglect/Abuse Screening Last Done: 06/25/25 15:21
*ED COVID-19 Vaccine History Last Done: 06/25/25 16:45
*ED Influenza Vaccine History Last Done: 06/25/25 16:45
*Nursing Disposition Last Done: 06/25/25 17:12
VV-Kzajue-Uoievmgubp Assessment Last Done: 06/25/25 16:45
ED- Cardiac Assessment Last Done: 06/25/25 16:45
ED- Pulmonary Assessment Last Done: 06/25/25 16:45
Discharge Date and Time
Discharge Date/Time: 06/25/25 17:14
Print Language: BOLIVIAN
[2025-06-25 16:22] LABS: ALT (SGPT) 16 U/L (0-35); AST (SGOT) 20 U/L (14-36); Albumin 4.8 g/dl (3.5-5.0); Alkaline Phosphatase 63 U/L (38-126); Blood Urea Nitrogen 14 mg/dl (7-17); Calcium 10.0 mg/dl (8.4-10.2); Carbon Dioxide 31 mmol/L (22-30); Chloride 102 mmol/L (98-107); Glucose 94 mg/dl (70-99); Potassium 4.4 mmol/L (3.5-5.1); Sodium 136 mmol/L (135-145); Total Protein 7.2 g/dl (6.3-8.2); eGFR > 60.00
== END 2025-06-25 17:14 | disposition home or self-care (01) ==
LOC: EMR 15:11
PROVIDERS: Emergency Medicine; EMERGENCY PHYSICIAN Emergency Medicine; FAMILY PHYSICIAN Family Medicine
DX: K64.9 Unspecified hemorrhoids (principal); I10 Essential (primary) hypertension; G35.A Relapsing-remitting multiple sclerosis; Z90.49 Acquired absence of other specified parts of digestive tract
CPT/HCPCS: 99283; 80053; 85025; 86850; 86900; 86901

== ENCOUNTER 2025-07-16 19:01 | Inpatient (IN) | payer BC, SELFPAY ==
[2025-07-16] VITALS (11 sets, daily range): BP systolic 122–151; BP diastolic 59–85; BMI 52.8; BMI 50.9
--- NOTE | 2025-07-16 13:49 | ED.GENMED ---
History of Present Illness
General
Chief Complaint: Weakness
Source: patient and ambulance crew
Exam Limitations: none
Time Seen by Provider: 07/16/25 13:47
Nursing documentation reviewed up to this point in time: agreed with
History of Present Illness
History of Present Illness:
Note:
CHIEF COMPLAINT(S)
Worsening lower extremity weakness.
HISTORY OF PRESENT ILLNESS
The patient is a 60-year-old female with a history of neurological issues who presents with worsening lower extremity weakness. She reports that this has occurred in the past but has now intensified. The patient states she typically ambulated with a
walker, but now requires assistance from her brother to get out of bed. Her ability to lift her leg is impacted, and she was unable to move to the bedside last night. Additionally, she experiences difficulty lifting against gravity. She is uncertain
of the cause but mentions a possible correlation to nodules identified in the past. Her breathing is currently stable. She is followed by a neurologist, Dr. Love, but has not recently consulted her local neurologists. The patient struggles to
recall exact medical providers in recent history, mentioning several names but unsure of their current involvement in her care.
SOCIAL DETERMINANTS AFFECTING HEALTH
The patient lives with her brother, who assists her in daily activities, indicating a reliance on familial support for mobility and possibly other daily needs.
REVIEW OF SYSTEMS
- Musculoskeletal: Worsening weakness in lower extremities, notably difficulty lifting legs.
PHYSICAL EXAM
General: Alert, no acute distress.
Skin: Warm, dry.
Head: Normocephalic, atraumatic.
Neck: Supple, trachea midline.
Eye Ears, nose, mouth, and throat: Oral mucosa moist.
Cardiovascular: Normal peripheral perfusion, No edema.
Respiratory: Respirations are non-labored.
Gastrointestinal: Abdomen nondistended.
Back: Normal range of motion, Normal alignment.
Musculoskeletal: Reduced strength in lower extremities, unable to lift leg against gravity.
Neurological: Alert and oriented to person, place, time, and situation, No focal neurological deficit observed.
Psychiatric: Cooperative, appropriate mood & affect.
PLAN
- Initiate corticosteroid therapy as a trial to assess improvement in symptoms.
- Conduct blood tests to understand underlying causes contributing to the worsening condition.
- Consider brain imaging to evaluate potential neurological changes.
- Admit to the hospital for further observation and management of her symptoms.
DIFFERENTIAL DIAGNOSIS
The Differential Diagnosis includes, in no particular order and is not limited to:
1. Multiple sclerosis exacerbation
2. Peripheral neuropathy
3. Neuromuscular disorder
4. Spinal cord compression
5. Myopathy
6. Transverse myelitis
7. Cerebral lesions
8. Amyotrophic lateral sclerosis (ALS)
9. Guillain-Fitch� syndrome
10. Metabolic neuropathy
Disposition:
SUMMARY OF ENCOUNTER
The patient, a 60-year-old female, presented to the emergency department with worsening lower extremity weakness, which is consistent with past episodes but has become more severe. The patient has a history of neurological issues, raising concerns
about a possible multiple sclerosis (MS) exacerbation. After examining the patient and consulting with neurology, it was determined that she requires further neuroimaging and workup to assess her current neurological state.
DISPOSITION
Admit to hospitalists for further management and observation.
ASSESSMENT
The patients symptoms align with a possible exacerbation of multiple sclerosis, necessitating admission for detailed neurological assessment.
PLAN
- Admit the patient for further neuroimaging and thorough workup.
- Initiate corticosteroid therapy to manage potential MS exacerbation.
- Monitor and manage the patients ability to ambulate and perform daily activities as necessary.
- Continue supportive care, including assistance with mobility provided by her brother.
MANAGEMENT OF THE PATIENTS CARE WAS DISCUSSED WITH
Management plan was discussed with the neurology team, who deemed the likely diagnosis to be multiple sclerosis exacerbation and involved the hospitalist for admission.
DIAGNOSIS
Multiple sclerosis exacerbation (ICD-10: G35).
Past History
Past History
ED Past Medical History: HTN and Other (Multiple sclerosis (relapsing-remitting), anemia, Neuropathy, Hemorrhoids, UTI, Anemia, Numbness arms and leg, )
ED Past Surgical History: , Gynecological (ovarian surgeries x 3, Cervix Surgery) and Orthopedic (R shoulder surgery, left ankle fracture with surgery)
Social History
Tobacco: Non-smoker
Alcohol: None
Drug: None
Personal:
Living: with family
Employment: Employed
Family History
Family History: Other (reviewed and Noncontributory)
Phy Exam
Physical Exam
Physical Exam:
.
Course
Orders/Labs/Results
Orders:
Orders
07/16/25 13:58
Cardiac Monitoring- Treatment ONCE
IV Insert/Care/Rem.- Treatment PRN
Pulse Ox/cont/shift [RESP] Stat
Quantity: 1
07/16/25 14:01
Electrocardiogram (*1) Stat
Reason for Study: Other
Other Reason for Exam: neuro symptoms
EKG- Treatment ONCE
07/16/25 14:17
Complete Blood Count/With Diff Urgent
Comprehensive Metabolic Panel Urgent
Iron Urgent
Comment: ADD ON
Total Iron Binding Urgent
Comment: ADD ON
07/16/25 14:18
Straight cath- Treatment ONCE
07/16/25 15:38
MR Brain W/o & With Contrast Routine
Comment:
Reason For Exam: ? MS flare, ? sinusitis
Recent pill cam endoscopy?: No
Prochlorperazine [Compazine] 10 mg IV NOW STA
07/16/25 15:39
MR Thoracic Spine W/o & With Routine
Comment:
Reason For Exam: ? MS flare
Recent pill cam endoscopy?: No
07/16/25 15:40
Consult Neurology [NEUROLOGY CONSULT] Urgent
Consulting Provider: Parag Solares
Was physician already notified: Yes
Reason for consult: weakness, MS flare
Ot Eval And Treat Routine
Pt Eval And Treat Routine
Treatment: Gait dysfxn
Activity Level: Out of Bed- Chair
Speech Therapy Eval & Treat Routine
Treatment: Aphasia
07/16/25 16:00
Ferritin Routine
Comment: ADD ON
Folate Routine
Comment: May add to blood in lab
Vitamin B12 Routine
Comment: May add to blood in lab or draw as routine
Vitamin D, 25-OH Routine
Comment: may add to blood in lab
07/16/25 17:23
Urinalysis Reflex To Culture Urgent
Date Specimen was Collected: 07/16/25
Time Specimen was Collected: 17:21
Urine Microscopic Reflex Cult Urgent
Urine Culture Urgent
FRANCISCO Source: U
Specimen Description:
Date Specimen was Collected: 07/16/25
Time Specimen was Collected: 17:21
07/16/25 18:27
Add On- LAB Stat
Tests Added?: iron, ferritin, b12, foalte TIBC
07/16/25 18:32
Admit/Transfer Patient As Directed
Co-Sign Provider:
Level of Care: Inpatient admission
Assign to:: Medical/Surgical
Physician / Group: erasmo
Diagnosis: MS flare
Reason for Hospitalization: MS flare
Expected length of stay greater than two midnights?: Yes
ELOS- Estimated Length of Stay in days: 3
I certify the patient meets the requirements for IP care: Yes
PRN Pain Medication Management As Directed
May give lesser potent ordered pain med per pt: Yes
preference::
Protocol:: Medication orders for pain may be administered in a
manner that supports deferring to patient preference
when the pt is:
- Requesting an ordered lesser potent pain medication.
Least to most potent pain medications are defined
as: acetaminophen < NSAID < tramadol < opioids
(morphine, oxycodone, hydromorphone).
- Requesting a lesser dose of the same medication IF
ORDERED.
- Requesting a less intrusive route of administration
if both routes are prescribed by the provider (PO <
IV).
07/16/25 18:33
Code Status As Directed
Resuscitation Status: Full Code
Abnormal Lab Results
07/16/25 07/16/25
14:17 17:23
RBC 3.61 L 10^6/uL
(4.20-5.40)
Hgb 10.4 L g/dL
(12.0-16.0)
Hct 32.9 L %
(37.0-47.0)
MCHC 31.6 L g/dL
(33.0-37.0)
Absolute Lymphs (auto) 0.5 L 10^3/uL
(1.2-3.4)
Neutrophils % 84.0 H %
(42.2-75.2)
Lymphocytes % 6.5 L %
(20.5-51.1)
Glucose 106 H mg/dl
(70-99)
Iron 25 L ug/dl
(37-170)
TIBC 254 L ug/dl
(265-497)
% Saturation 9 L %
(20-50)
Urine RBC 3-6 A /HPF
(0-2)
Urine Bacteria (Reflex) Many A
(Negative)
Urine Albumin (Reflex) 1+ A
(Neg - Trace)
07/16/25 14:17
07/16/25 14:17
Vital Signs
Initial and Last Documented VS:
Initial Vital Signs
Temp Pulse Resp BP Pulse Ox
98.4 F 98 17 126/77 96
07/16/25 13:33 07/16/25 13:33 07/16/25 13:33 07/16/25 13:33 07/16/25 13:33
Last Documented Vital Signs
Temp Pulse Resp BP Pulse Ox
98.4 F 89 18 126/70 95
07/16/25 13:33 07/16/25 20:30 07/16/25 20:32 07/16/25 20:00 07/16/25 20:32
*Pulse Oximetry
SaO2: 96
Oxygen Mode of Delivery: Room air
Patient hypoxic: no
*Critical Care Note
Total Time (30-74mins, 75-104mins- exclusive of procedures): Not Applicable
ED Attending Note
-
Portions of this chart may have been created with voice recognition software.� Occasional wrong word or��sound alike� substitutions may have occurred due to the inherent limitations of voice recognition software.
Discharge Plan
Departure
Patient Disposition: Admit
Date of Disposition: 07/16/25
Time of Disposition: 18:00
Admit to: Telemetry
Presentation/result/management discussed w/ accepting MD/DO: Hospitalist
Patient with high blood pressure during this ER visit?: Yes
Discharge Problem:
Multiple sclerosis, Bilateral leg weakness
Interventions
Interventions:
*General Assessment Last Done: 07/16/25 13:33
*Neglect/Abuse Screening Last Done: 07/16/25 16:10
*ED COVID-19 Vaccine History Last Done: 07/16/25 16:10
*ED Influenza Vaccine History Last Done: 07/16/25 16:10
[facility] Fall Risk Assessment Tool Last Done: 07/16/25 14:35
*Risk Screen - Suicide (C-SSRS) Last Done: 07/16/25 13:33
ED- Cardiac Assessment Last Done: 07/16/25 13:33
ED- Neurological Assessment Last Done: 07/16/25 13:33
ED- Pulmonary Assessment Last Done: 07/16/25 13:33
[2025-07-16 14:25] LABS: Hematocrit 32.9 % (37.0-47.0); Hemoglobin 10.4 g/dL (12.0-16.0); Mean Corp Hgb Conc. 31.6 g/dL (33.0-37.0); Mean Corpuscular Volume 91.1 fL (81.0-99.0); Nucleated Red Blood Cells % 0 %; Platelet Count 278 10^3/uL (130-400); Red Cell Dist. Width 14.0 % (11.5-14.5)
[2025-07-16 14:57] LABS: ALT (SGPT) 13 U/L (0-35); AST (SGOT) 16 U/L (14-36); Albumin 4.2 g/dl (3.5-5.0); Alkaline Phosphatase 60 U/L (38-126); Blood Urea Nitrogen 14 mg/dl (7-17); Calcium 9.3 mg/dl (8.4-10.2); Carbon Dioxide 24 mmol/L (22-30); Chloride 105 mmol/L (98-107); Estimated Creatinine Clearance > 125 ml/min; Glucose 106 mg/dl (70-99); Potassium 4.2 mmol/L (3.5-5.1); Sodium 136 mmol/L (135-145); Total Protein 6.8 g/dl (6.3-8.2); eGFR > 60.00
--- NOTE | 2025-07-16 15:15 | CON.NEURO ---
Addendum entered and electronically signed by Parag Solares MD 07/16/25 16:11:
Studies reviewed.
I have personally examined the patient. I reviewed and agree with the TROUBLE LINEMAN's Note.
My addenda:
Awake, alert, interactive. No acute distress.
Speech intact.
Follows 2-step requests w/o difficulty. No tremor.
Extra-ocular movements grossly intact.
Facial movements full and symmetric. Hearing intact to normal conversational volume.
Normal UE movements bilaterally. Unable to move bilateral lower extremities, 1 out of 5 distally in the right leg 0 out of 5 in the left leg distally
Neck: full ROM.
Chest: no dyspnea
Heart: no JVD
Ext: (-) Clubbing, (-) Cyanosis, (-) Edema
IMPRESSIONS/RECOMMENDATIONS:
Abrupt onset of bilateral lower extremity weakness in a patient with chronic gait dysfunction and weakness
Most likely due to pseudo exacerbation of secondarily progressive multiple sclerosis. Differential diagnosis includes exacerbation of multiple sclerosis which would indicate acute demyelinating lesions which is less likely.
Check urinalysis
Check MRI of brain with and without contrast for acute demyelinating lesions although unlikely
Check MRI of thoracic spine and eventually lumbar spine with and without contrast to determine if acute lesions are present in the spinal cord
Eventual consideration for rechecking cervical spine MRI with and without contrast
Check blood work for potential metabolic abnormalities producing symptomatology
Provide prochlorperazine as needed for headache
Speech therapy evaluation due to the patient's self stated dysphagia over the course of the last several weeks
Physical therapy and Occupational Therapy
Patient should continue her usual outpatient ocrelizumab every 6 months
D/W patient
All questions answered.
Will continue to follow patient.
Original Note:
Neuro Assessment/Plan
Assessment
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
Cervical MRI 05/16/2024: Stable patchy indistinct poorly defined MS plaque formation of the cervical cord. No new findings or enhancement to suggest active demyelination. No focal protrusion or significant central canal narrowing. Minor foraminal
narrowing at C5-6.
Braini MRI 05/16/2024: Multiple plaques approaching CSF signal intensity, consistent with chronic inactive 'burned out' demyelinating MS plaques. Overall stable examination. No evidence to suggest active demyelination.
Plan
Impression: Abrupt onset of lower extremity weakness in a patient with underlying lower extremity weakness due to her secondary progressive multiple sclerosis. Most likely pseudo flare given possibility of infection vs new demyelinating lesions.
-work up for infection and treat accordingly
-check brain MRI with/without contrast to look for new demyelinating lesions
-check thoracic MRI with/without contrast to look for new demyelinating lesions
-PT/OT/ST evaluations
-may give prochlorperazine PRN for headache
-continue to follow up with outpatient neurologist
All questions encouraged and answered, plan of care discussed with Dr. Solares and patient
Consultation
Order
Date of Consultation: 07/16/25
Requesting Provider: ED/ Dr. Ben Bowles
Reason for Consult: lower extremity weakness
Subjective/Objective
Subjective Data
Date of Service: July 16, 2025
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 For the last 24 hours
noticed a decline in ambulation and LE weakness. Notes both legs extremely weak and unable to move. Denies weakness to upper extremities. She notes at 3pm yesterday she was sitting on edge of her bed and unable to stand. Around 6pm called her family
to help her back in bed. Called her doctor who instructed her to come to ED. Last night she noted a headache felt like throbbing to forehead, temporal region bilaterally accompanied by nausea and photophobia. Has ultrasound of thyroid scheduled for
August 07 for feeling of 'something choking' her. She feels she is dehydrated because she is having muscle spasms in her arms. Last night while trying to stand up was having full body spasms which she has had in the past when dehydrated. Takes
gemtesa and notes improvement in bladder control, before the medication was urinating every 2 hours and now able to go 8 hours. Denies issues with bowels. Denies neck and back pain. Denies sensation changes. Denies vision changes. Continues with
headache 09/11. Last imaging was from May 2024 and did not show any active demyelination.
Last seen by Dr. Ismael Castanon, neurologist at [facility] on 06/18/2025:
'Annette Mata is a 60 y.o. female who has SPMS. History of Present Illness: Current Symptoms: She reports experiencing facial twitching, particularly in the cheeks when smiling, which subsides upon relaxation. Additionally, she has been
experiencing right-sided head pain, described as a squeezing sensation, occurring approximately once a week and lasting up to 30 minutes. This pain is not associated with any specific triggers and does not require medication for relief. Since December
2024, she has been experiencing dizziness, which she attributes to an inner ear issue as she had an infection requiring antibiotics. She has not sought ENT consultation for this symptom and has not undergone any therapy for her dizziness. She has
been taking Flonase as prescribed by her primary care physician. Fatigue and falls have also been problematic. Leg swelling has been noted, which she attributes to her nifedipine medication. She reports that the swelling in her upper legs has
decreased. She has been performing [id number] exercises at home. For mobility, she has been using a rollator since 2018 within her home and relies on a wheelchair or motorized chair for outdoor mobility. She continues to take Ampyra She reports
that her urinary frequency has been well-managed with Gemtesa and continues to be under the care of a urologist. Her last Ocrevus infusion was on 03/19/2025 without any adverse reactions. She has not experienced any urinary or other infections. She
has been taking vitamin D 10,000 units three times a week.
Annette Mata is a 60 y.o. female who has SPMS on Ocrevus. Her initial episodes of right-sided numbness and dizziness with tremor are typical of initial demyelinating events. While she initially had relapses, her condition has been notable for
a gradual decline in ambulation and sphincter function which is most suggestive of non-relapsing secondary progressive MS. She will continue Ocrevus for now, due 09/2024. She will have labs before her next infusion and I will aim to review her images
from [place]. Though, as she has had progression on Ocrevus, she would be a good candidate for BTKi for nrSPMS when approved. From a symptomatic perspective, she will continue Ampyra and Gemtesa. She will also return to PT for improving balance
and strength as well as pursuing neck stretching exercises. She will also continue home exercises. She will return for follow-up in 6 months.'
Objective Data
Vital Signs
Temp Pulse Resp BP Pulse Ox
98.4 F 90 18 146/77 94
07/16/25 13:33 07/16/25 15:00 07/16/25 15:00 07/16/25 15:00 07/16/25 15:00
Lab Results
07/16/25 14:17
07/16/25 14:17
Sodium 136 mmol/L (135-145) 07/16/25 14:17
Potassium 4.2 mmol/L (3.5-5.1) 07/16/25 14:17
BUN 14 mg/dl (7-17) 07/16/25 14:17
Glucose 106 mg/dl (70-99) H 07/16/25 14:17
Calcium 9.3 mg/dl (8.4-10.2) 07/16/25 14:17
Patient Allergies
morphine Adverse Reaction (Verified 06/25/25 15:21)
Nausea / Vomiting
oxycodone (From Percocet) Adverse Reaction (Verified 06/25/25 15:21)
Nausea / Vomiting
Review of Systems
-
History Source: Patient
Constitutional: Weakness
EENT: Swallowing Difficulty
Respiratory: No Symptoms
Cardiac: No Symptoms
Abdomen/GI: No Symptoms
Genitourinary: No Symptoms
Musculoskeletal: Muscle Weakness
Skin: No Symptoms
Neuro: Dizzy and Weakness
Endocrine: No Symptoms
Hematologic / Lymphatic: No Symptoms
Allergy / Immunology: No Symptoms
Physical Exam
-
General: No Apparent Distress and Obese
Eyes: No Ptosis
HEENT: Normocephalic
Neck: No Bruits Bilaterally
Respiratory: Clear to Auscultation
Cardiac: Regular Rhythm
GI: Normal Bowel Sounds
Skin: Unremarkable
Extremities: No Clubbing and Edema +3 (b/l LE)
Psych: Intact Judgement/Insight
Extended Neurological Exam
Mood & Affect: Mood Unremarkable
Attention Span & Concentration: Awake, Alert, Interactive and No Difficulty with 2 Step Request
Memory: Able to Recall
Tremor: Hand Tremor Absent
Involuntary Movement: None
Speech: Quality Unremarkable and Quantity Unremarkable; Negative Expressive Aphasia, Receptive Aphasia or Dysarthric
Cranial Nerve II: Left Eye: Pupillary Reactivity Unremarkable, Pupillary Size Unremarkable and Visual [place] Intact
Cranial Nerve II: Right Eye: Pupillary Reactivity Unremarkable, Pupillary Size Unremarkable and Visual [place] Intact
Cranial Nerves III, IV, : Extraocular Movement: Extraocular Movement Full in all Directions
Cranial Nerve VII: Facial Symmetry: Normal Facial Symmetry
Cranial Nerve VIII: Hearing: Unremarkable Hearing to Normal Conversational Volume
Muscle Strength, Overall: Reduced Bilaterally (1/5 b/l LE)
Pronator Drift: No Drift in Upper Extremities
Deep Tendon Reflexes: Other (plantar upgoing)
Cold Sensation: Unremarkable
Vibration Sensation: Unremarkable
Coordination: [id number]-[id number] Testing Unremarkable
Babinski Sign: Absent Bilaterally
Medications
-
Home Medications
�Medication �Instructions �Recorded
dalfampridine 10 mg 10 mg PO BID MS 05/26/21
tablet,extended release,12 hr
(Ampyra)
ocrelizumab 30 mg/mL intravenous 600 mg IV [id number] MS 05/26/21
solution (Ocrevus)
nifedipine 30 mg tablet,extended 30 mg PO DAILY Heart 12/16/21
release disease/condition
ascorbic acid (vitamin C) 500 mg 500 mg PO DAILY Supplement 06/30/22
tablet (Vitamin C)
cholecalciferol (vitamin D3) 25 5,000 units PO DAILY Supplement 06/30/22
mcg (1,000 unit) tablet
gabapentin 300 mg capsule 300 mg PO HS Neurological Condition 03/16/23
labetalol 300 mg tablet 300 mg PO BID Blood Pressure 03/16/23
ferrous sulfate 325 mg (65 mg 325 mg PO DAILY Supplement 11/12/23
iron) tablet (iron)
Lactobac no.2-Bifidobac no.1-S. 1 cap PO DAILY 06/25/25
thermo 112.5 billion cell capsule
(Visbiome)
vibegron 75 mg tablet (Gemtesa) 75 mg PO DAILY Urinary Issue 06/25/25
Past History
Past History
ED Past Medical History: HTN and Other (Multiple sclerosis (relapsing-remitting), anemia, Neuropathy, Hemorrhoids, UTI, Anemia, Numbness arms and leg, )
ED Past Surgical History: , Gynecological (ovarian surgeries x 3, Cervix Surgery) and Orthopedic (R shoulder surgery, left ankle fracture with surgery)
Family/Social History
Tobacco: Non-smoker
Alcohol: None
Drug: None
Personal:
Living: with family
Employment: Employed
Family History: Other (reviewed and Noncontributory)
[2025-07-16] MEDS: COMPAZINE 10 MG IV (15:53)
--- NOTE | 2025-07-16 16:22 | PTOTSP ---
Speech Therapy Evaluation:
Pt with acute on chronic risk factors of dysphagia including hx of MS, acutely compounded by current admission for weakness. No imaging completed thus far, however WBC WNL, pt on room air, and oropharyngeal swallow appeared functional at bedside. Pt
passed 3oz swallow screen.
Recommend:
1. Regular solids and thin liquids
2. Medications as tolerated
3. Strict aspiration precautions
4. d/c oral diet if concerned for aspiration or respiratroy status worsens
5. BRAKE REPAIRER [employer] to follow to monitor tolerance of diet and determine if pt would benefit from instrumental assessment
[2025-07-16 16:44] LABS: Vitamin D, 25-OH*** 50.6 ng/mL (30-80)
[2025-07-16 17:31] LABS: Urine Character Clear (Clear)
[2025-07-16 17:33] LABS: Folate 7.1 ng/ml (2.76-20); Vitamin B12 550 pg/ml (239-931)
[2025-07-16 17:46] LABS: Urine Squamous Cell >30 /LPF (Few)
[2025-07-16 17:48] LABS: Urine White Cell 0-2 /HPF (0-5)
--- NOTE | 2025-07-16 18:02 | HPS.HSE ---
Family Physician
-
Family Physician: Nemesio Watters
Chief Complaint
-
LE weakness
History of Present Illness
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 patient stated she was not able to lift her legs.
she was not able to walk with her walker. she just felt weaker. she complained of DAVALOS and dizzy. she was nauseous. Denies weakness to upper extremities. Denies neck and back pain. Denies sensation changes. Denies vision changes. denied fever, chills,
chest pain, cough, congestion. Patient denied any abdominal pain, vomiting or diarrhea. Patient denied dysuria hematuria.
Admitting for further management
Medical History
Past Medical History
Past Medical History: Reports Other
Additional Past Medical History:
MS, thyroid nodule, prediabetes, hypertension, neurogenic bladder
Past Surgical History: Reports Other
Additional Past Surgical History:
Shoulder surgery ovarian surgery ankle surgery
Social History
Tobacco: Non-smoker
Alcohol: None
Drug: None
Family History
Family History: Not pertinent
Allergies / Home Medications
Allergies reflects when Allergies were last updated in [employer].
Home Medications with original date entered in [employer]
Allergy/Medication List:
Allergies
Allergy/AdvReac Type Severity Reaction Status Date / Time
morphine AdvReac Nausea / Verified 06/25/25 15:21
Vomiting
oxycodone (From Percocet) AdvReac Nausea / Verified 06/25/25 15:21
Vomiting
Home Medications
dalfampridine 10 mg tablet,extended release,12 hr (Ampyra) 10 mg PO BID MS 05/26/21
ocrelizumab 30 mg/mL intravenous solution (Ocrevus) 600 mg IV [id number] MS 05/26/21
nifedipine 30 mg tablet,extended release 30 mg PO DAILY Heart disease/condition 12/16/21
ascorbic acid (vitamin C) 500 mg tablet (Vitamin C) 500 mg PO DAILY Supplement 06/30/22
cholecalciferol (vitamin D3) 25 mcg (1,000 unit) tablet 5,000 units PO DAILY Supplement 06/30/22
gabapentin 300 mg capsule 300 mg PO HS Neurological Condition 03/16/23
labetalol 300 mg tablet 300 mg PO BID Blood Pressure 03/16/23
ferrous sulfate 325 mg (65 mg iron) tablet (iron) 325 mg PO DAILY Supplement 11/12/23
Lactobac no.2-Bifidobac no.1-S. thermo 112.5 billion cell capsule (Visbiome) 1 cap PO DAILY 06/25/25
vibegron 75 mg tablet (Gemtesa) 75 mg PO DAILY Urinary Issue 06/25/25
cranberry fruit 450 mg tablet (cranberry) 450 mg PO DAILY Supplement 07/16/25
Review of Systems
-
Constitutional: Reports No Symptoms
EENT: Reports No Symptoms
Respiratory: Reports No Symptoms
Cardiac: Reports No Symptoms
Abdomen/GI: Reports No Symptoms
: Reports No Symptoms
Musculoskeletal: Reports No Symptoms
Skin: Reports No Symptoms
Neurological: Reports Dizzy, Headache and Weakness (LE weakness)
Endocrine: Reports No Symptoms
Hematologic/Lymphatic: Reports No Symptoms
Psych: Reports No Symptoms
Physical Exam
Vital Signs
Vital Signs
Temp Pulse Resp BP Pulse Ox
98.4 F 88 18 122/69 94
07/16/25 13:33 07/16/25 17:15 07/16/25 15:00 07/16/25 17:00 07/16/25 17:15
Physical Exam
General: Well Developed, Well Nourished and No Apparent Distress
HEENT: NormoCephalic, Moist mucous membranes and Atraumatic
Respiratory: Clear
Cardiac: S1/S2 and Regular Rhythm; No Murmur or Rub
GI: Soft, Non Tender, Non Distended and Normal Bowel Sounds; No Organomegaly
Rectal: Deferred by Provider
Musculoskeletal: No Clubbing, No Cyanosis and No Edema
Skin: No Rash
Neuro: AO x 3 and Nonfocal/grossly intact
Psych: Calm
Laboratory Results
-
07/16/25 14:17
07/16/25 14:17
Laboratory Results
Total Bilirubin 1.0 mg/dl (0.2-1.3) 07/16/25 14:17
AST 16 U/L (14-36) 07/16/25 14:17
ALT 13 U/L (0-35) 07/16/25 14:17
Alkaline Phosphatase 60 U/L (38-126) 07/16/25 14:17
Data Reviewed
-
Lab Data: Labs Reviewed by me
Impression/Plan
-
# Lower extremity weakness concern for MS exacerbation
- Neurology consulted
- UA negative
- Obtain MRI of brain with and without
-MRI of thoracic spine and lumbar spine
-cervical spine MRI
-prochlorperazine prn for DAVALOS
-speech eval
-PT/OT
-Ampyra continued
-Gabapentin continued
-neuro recommended ocrelizumab every 6 months
# Anemia
- No active bleeding
- Pending iron panel
- Hemoglobin 10.4
- Ferrous sulfate continue
#Thyroid nodule
- Scheduled for outpatient ultrasound
# Overactive bladder
- Gemtesa continued
#Essential HTN: cont cont labetalol and nifedipine
#Spasticity: Continue home gabapentin
#Severe spinal canal stenosis
#Morbid Obesity due to excess calories: Encourage weight loss.
#FULL CODE
#Lovenox for DVT Prophylaxis
[2025-07-16 19:07] LABS: Iron 25 ug/dl (37-170)
[2025-07-16 19:17] LABS: Total Iron Binding Capacity 254 ug/dl (265-497)
[2025-07-16 19:41] LABS: Ferritin 103.0 ng/ml (11.1-264.0)
--- NOTE | 2025-07-16 20:54 | W.PN.UPDATE ---
Update Note
Progress Note Update
Attending note
Patient seen independently
60 year old woman with:
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
HTN,
neuropathy,
UTI
presents with LE weakness since yesterday. Not able to lift her legs. Not able to walk with her walker. [place] weaker. Complained of DAVALOS and dizzyness, was nauseous. Denies weakness to upper extremities, neck and back pain, sensation changes, vision
changes, fever, chills, chest pain, cough, congestion, abdominal pain, vomiting or diarrhea, dysuria hematuria.
Past Medical History
MS,
thyroid nodule,
prediabetes,
hypertension,
neurogenic bladder
Shoulder surgery
ovarian surgery
ankle surgery
Physical Exam
General: Well Developed,
HEENT: NormoCephalic,
Respiratory: Clear
Cardiac: S1/S2
GI: Soft, Non Tender, Non Distended
Psych: Calm
A/P
1. Lower extremity weakness concern for MS exacerbation
- Neurology consulted, neurology recommended:
'Check urinalysis
Check MRI of brain with and without contrast for acute demyelinating lesions although unlikely
Check MRI of thoracic spine and eventually lumbar spine with and without contrast to determine if acute lesions are present in the spinal cord
Eventual consideration for rechecking cervical spine MRI with and without contrast
Check blood work for potential metabolic abnormalities producing symptomatology
Provide prochlorperazine as needed for headache
Speech therapy evaluation due to the patient's self stated dysphagia over the course of the last several weeks
Physical therapy and Occupational Therapy
Patient should continue her usual outpatient ocrelizumab every 6 months'
- UA negative
- MRI of brain with and without
- MRI of thoracic spine and lumbar spine
- cervical spine MRI
- prochlorperazine prn for DAVALOS
- speech eval
- PT/OT
- Ampyra continued
- Gabapentin continued
- ocrelizumab every 6 months
Please see W[employer] VALVE REPAIRER note for full details on:
Anemia
Thyroid nodule
Overactive bladder
Essential HTN:
Spasticity
Severe spinal canal stenosis
Morbid Obesity due to excess calories:
Code status FULL CODE
Lovenox for DVT Prophylaxis
--- NOTE | 2025-07-16 21:00 | PTCARENOTE ---
Pt arrived to unit from ED via stretcher. Pt pulled over to bed and oriented to room. Pt A & O x3. VSS. Call simons within reach.
[2025-07-16] MEDS: TRANDATE 300 MG PO (22:15)
[2025-07-16] MEDS: NEURONTIN 300 MG PO (22:15)
[2025-07-17 07:10] VITALS: BP 136/64
[2025-07-17 07:24] LABS: Hematocrit 31.0 % (37.0-47.0); Hemoglobin 9.9 g/dL (12.0-16.0); Mean Corp Hgb Conc. 31.9 g/dL (33.0-37.0); Mean Corpuscular Volume 91.4 fL (81.0-99.0); Platelet Count 262 10^3/uL (130-400); Red Cell Dist. Width 14.1 % (11.5-14.5)
[2025-07-17 07:51] LABS: Blood Urea Nitrogen 10 mg/dl (7-17); Calcium 9.4 mg/dl (8.4-10.2); Carbon Dioxide 27 mmol/L (22-30); Chloride 108 mmol/L (98-107); Estimated Creatinine Clearance 110 ml/min; Glucose 92 mg/dl (70-99); Potassium 4.0 mmol/L (3.5-5.1); Sodium 140 mmol/L (135-145); eGFR > 60.00
[2025-07-17] MEDS: FEOSOL 325 MG PO (09:41)
[2025-07-17] MEDS: PROCARDIA XL (EXTENDED RELEASE) 30 MG PO (09:41)
[2025-07-17] MEDS: DETROL LA 4 MG PO (09:41)
[2025-07-17] MEDS: TRANDATE 300 MG PO ×2 (09:41→19:48)
[2025-07-17] MEDS: VISBIOME 1 CAP PO (09:42)
[2025-07-17] MEDS: DESENEX/MITRAZOL/ZEASORB 1 APPLIC TOPICAL ×2 (09:43→19:52)
--- NOTE | 2025-07-17 10:38 | W.PN.HOSP.TC ---
Today's Communication/Plan
-
MRIs pending
IVF
Assessment / Plan
Assessment / Plan
60F with MS p/w acute onset lower extremity weakness.
Lower extremity weakness concern for MS exacerbation
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 Differential diagnosis includes exacerbation of multiple sclerosis which would indicate acute demyelinating lesions which is less
likely.'
- UA negative
- Obtain MRI of brain with and without
-MRI of thoracic spine and lumbar spine
-cervical spine MRI
-prochlorperazine prn for DAVALOS
-speech eval
-PT/OT
-Ampyra continued
-Gabapentin continued
-neuro recommended ocrelizumab every 6 months
Anemia
- No active bleeding
- reviewed iron panel -noted iron deficiency, will start oral iron
- Hemoglobin 9.9
- Ferrous sulfate continue
Thyroid nodule
- Scheduled for outpatient ultrasound
Overactive bladder
- Gemtesa continued
Essential HTN: cont cont labetalol and nifedipine. BP controlled
Spasticity: Continue home gabapentin
Severe spinal canal stenosis
Morbid Obesity due to excess calories: Encourage weight loss.
Dehydration: pt's labs WNL but states eating poorly, trial IVF bolus
FULL CODE
DVT Prophylaxis
Lovenox
Anticipated Discharge: 24 - 48 hours
Subjective/Interval History
-
Date of Service: July 17, 2025
Pt feeling a bit better, can wiggle toes more, headache a bit better. She feels dehydrated hasn't been eating well.
Objective Data
-
Labs:
Laboratory Results
07/17/25
06:25
WBC 4.8
Hgb 9.9 L
Hct 31.0 L
Plt Count 262
Sodium 140
Potassium 4.0
Chloride 108 H
Carbon Dioxide 27
BUN 10
Creatinine 0.7
Glucose 92
Calcium 9.4
Vital Signs:
Vital Signs
Temp Pulse Resp BP Pulse Ox
99.3 F 82 16 136/64 96
07/17/25 07:10 07/17/25 09:41 07/17/25 07:10 07/17/25 09:41 07/17/25 07:10
I&O
07/16/25 07/17/25 07/18/25
06:59 06:59 06:59
Intake Total 240 / 240
Output Total 350 / 350
Balance -110 / -110
Review of Systems
-
History Source: Patient
All other systems: Reviewed and negative
Physical Exam
-
General: No Apparent Distress and Morbidly Obese
HEENT: Moist Mucous Membranes, Anicteric and PERRLA
Respiratory: Clear to Auscultation; Negative Wheezes, Rales or Rhonchi
Cardiac: Regular Rhythm and S1/S2; Negative Murmur, Rub or Gallop
GI: Soft, Nontender, Nondistended and Normal Bowel Sounds
Musculoskeletal: No Edema
Skin: Warm and Dry; Negative Rash, Ulcers or Lesions
Neuro: Awake, AO x 3 and Other (Strength 2/5 of BLE. Otherwise nonfocal exam)
Hematologic / Lymphatic: No Lymphadenopathy
Psych: Calm
[2025-07-17] MEDS: NSS 1000 IV ×2 (11:22→12:29)
[2025-07-17 14:31] VITALS: BP 111/72; PULSE 93; O2SAT 95
[2025-07-17 14:48] VITALS: BP 111/72; PULSE 93; O2SAT 95
[2025-07-17 15:10] VITALS: BP 109/62
--- NOTE | 2025-07-17 16:26 | CM ---
Alert awake oriented patient who lives with her brother Boris in a 2 story home with ramp to enter.She lives on first floor. She is independent in activates of daily living.She does not drive .She uses a walker.Requested [facility] in past . [address] [facility] hx
Pharmacy [facility] Main
PCP Dr Watters
PLAN Home with [facility]
[2025-07-17] MEDS: LOVENOX 40 MG SC (18:40)
[2025-07-17] MEDS: NON-FORMULARY ITEM 10 MG PO (19:45)
[2025-07-17] MEDS: NEURONTIN 300 MG PO (21:51)
[2025-07-17 23:43] VITALS: BP 148/72
[2025-07-18 07:49] VITALS: BP 154/78
[2025-07-18] MEDS: DETROL LA 4 MG PO (09:07)
[2025-07-18] MEDS: PROCARDIA XL (EXTENDED RELEASE) 30 MG PO (09:07)
[2025-07-18] MEDS: TRANDATE 300 MG PO ×2 (09:08→22:50)
[2025-07-18] MEDS: FEOSOL 325 MG PO (09:08)
[2025-07-18] MEDS: NON-FORMULARY ITEM 10 MG PO ×2 (09:09→21:13)
[2025-07-18] MEDS: VISBIOME 1 CAP PO (09:10)
[2025-07-18] MEDS: DESENEX/MITRAZOL/ZEASORB 1 APPLIC TOPICAL ×2 (09:15→21:13)
[2025-07-18] MEDS: TYLENOL 650 MG PO (10:49)
--- NOTE | 2025-07-18 12:26 | W.PN.HOSP.TC ---
Today's Communication/Plan
-
MRIs pending
Assessment / Plan
Assessment / Plan
60F with MS p/w acute onset lower extremity weakness.
Lower extremity weakness
concern for MS exacerbation
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 Differential diagnosis includes exacerbation of multiple sclerosis which would indicate acute demyelinating lesions which is less
likely.'
- UA negative
-MRI of brain with and without pending
-MRI of thoracic spine and lumbar spine pending
-cervical spine MRI eventual
-prochlorperazine prn for DAVALOS
-speech eval
-PT/OT rec IPR, per CM this requires PM&R consult, placed.
-Ampyra continued
-Gabapentin continued
-neuro recommended ocrelizumab every 6 months
Anemia
- No active bleeding
- reviewed iron panel -noted iron deficiency, will start oral iron
- Hemoglobin 9.9
- Ferrous sulfate continue
Thyroid nodule
- Scheduled for outpatient ultrasound
Overactive bladder
- Gemtesa continued
Essential HTN
cont labetalol and nifedipine. BP controlled
Spasticity
Continue home gabapentin
DVT Prophylaxis
Lovenox
Anticipated Discharge: 24 - 48 hours
Subjective/Interval History
-
Date of Service: July 18, 2025
Pt still not able to lift legs. Has sensation of thyroid swelling
Objective Data
-
Labs:
Laboratory Results
07/17/25
06:25
WBC 4.8
Hgb 9.9 L
Hct 31.0 L
Plt Count 262
Sodium 140
Potassium 4.0
Chloride 108 H
Carbon Dioxide 27
BUN 10
Creatinine 0.7
Glucose 92
Calcium 9.4
Vital Signs:
Vital Signs
Temp Pulse Resp BP Pulse Ox
97.9 F 76 18 154/78 97
07/18/25 07:49 07/18/25 09:07 07/18/25 07:49 07/18/25 09:07 07/18/25 07:49
I&O
07/17/25 07/18/25 07/19/25
06:59 06:59 06:59
Intake Total 240 / 240 480 / 480
Output Total 350 / 350 1800 / 1800
Balance -110 / -110 -1320 / -1320
Review of Systems
-
History Source: Patient
All other systems: Reviewed and negative
Physical Exam
-
General: No Apparent Distress and Morbidly Obese
HEENT: Moist Mucous Membranes, Anicteric and PERRLA
Respiratory: Clear to Auscultation; Negative Wheezes, Rales or Rhonchi
Cardiac: Regular Rhythm and S1/S2; Negative Murmur, Rub or Gallop
GI: Soft, Nontender, Nondistended and Normal Bowel Sounds
Musculoskeletal: No Edema
Skin: Warm and Dry; Negative Rash, Ulcers or Lesions
Neuro: Awake, AO x 3 and Other (Strength 2/5 of BLE. Otherwise nonfocal exam)
Hematologic / Lymphatic: No Lymphadenopathy
Psych: Calm
--- NOTE | 2025-07-18 13:48 | CM ---
Addendum entered by Chioma Berry 07/18/25 16:47:
Advance Directive info packet provided per request
Original Note:
Met with patient; agreeable to going to Acute Rehab if she meets criteria to do so
PM&R ordered
Referral sent to [facility] via [facility]
[2025-07-18 15:47] VITALS: BP 110/55
[2025-07-18] MEDS: LOVENOX 40 MG SC (18:06)
[2025-07-18] MEDS: NEURONTIN 300 MG PO (21:57)
[2025-07-18 23:06] VITALS: BP 137/68
[2025-07-19 07:15] VITALS: BP 147/63
[2025-07-19 08:45] LABS: Hematocrit 32.9 % (37.0-47.0); Hemoglobin 10.3 g/dL (12.0-16.0); Mean Corp Hgb Conc. 31.3 g/dL (33.0-37.0); Mean Corpuscular Volume 92.4 fL (81.0-99.0); Nucleated Red Blood Cells % 0 %; Platelet Count 291 10^3/uL (130-400); Red Cell Dist. Width 13.8 % (11.5-14.5)
[2025-07-19 09:33] LABS: Blood Urea Nitrogen 13 mg/dl (7-17); Calcium 9.3 mg/dl (8.4-10.2); Carbon Dioxide 26 mmol/L (22-30); Chloride 107 mmol/L (98-107); Estimated Creatinine Clearance 96 ml/min; Glucose 90 mg/dl (70-99); Potassium 4.1 mmol/L (3.5-5.1); Sodium 140 mmol/L (135-145); eGFR > 60.00
[2025-07-19] MEDS: TRANDATE 300 MG PO (10:05)
[2025-07-19] MEDS: VISBIOME 1 CAP PO (10:05)
[2025-07-19] MEDS: DESENEX/MITRAZOL/ZEASORB 1 APPLIC TOPICAL (10:05)
[2025-07-19] MEDS: FEOSOL 325 MG PO (10:06)
[2025-07-19] MEDS: PROCARDIA XL (EXTENDED RELEASE) 30 MG PO (10:06)
[2025-07-19] MEDS: NON-FORMULARY ITEM 10 MG PO (10:06)
[2025-07-19] MEDS: NON-FORMULARY ITEM 1 UNIT PO (10:07)
[2025-07-19] MEDS: DULCOLAX 10 MG RECTAL (10:50)
--- NOTE | 2025-07-19 11:52 | W.PN.HOSP.TC ---
Today's Communication/Plan
-
Discharge pending rehab placement
Assessment / Plan
Assessment / Plan
60F with MS p/w acute onset lower extremity weakness.
Lower extremity weakness
concern for MS exacerbation
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 Differential diagnosis includes exacerbation of multiple sclerosis which would indicate acute demyelinating lesions which is less
likely.'
- UA negative
-MRI of brain with and without shows no active demyelination, stable white matter disease from MS
-MRI of thoracic spine and lumbar spine shows no active demyelination, slightly less conspicuous than prior known demyelinating lesions
Per neurology, could be progression of MS, no steroids in this case. Patient to follow-up with her outpatient neurologist both locally and at [facility].
-cervical spine MRI eventually
-prochlorperazine prn for DAVALOS
-speech eval
-PT/OT rec IPR, per CM this requires PM&R consult, placed.
-Ampyra continued
-Gabapentin continued
-neuro recommended ocrelizumab every 6 months
Anemia
- No active bleeding
- reviewed iron panel -noted iron deficiency, will start oral iron
- Hemoglobin 9.9
- Ferrous sulfate continue
Thyroid nodule
- Scheduled for outpatient ultrasound
TSH is WNL
Seen by ST, no restrictions on swallowing
Overactive bladder
- Gemtesa continued
Essential HTN
cont labetalol and nifedipine. BP controlled
Spasticity
Continue home gabapentin
DVT Prophylaxis
Lovenox
Anticipated Discharge: Within 24 hours
Subjective/Interval History
-
Date of Service: July 19, 2025
Patient not having much change in her weakness. Trying to have a BM. I updated her on MRI results, and plan of care, she verbalized understanding.
Objective Data
-
Labs:
Laboratory Results
07/19/25
07:02
WBC 7.0
Hgb 10.3 L
Hct 32.9 L
Plt Count 291
Sodium 140
Potassium 4.1
Chloride 107
Carbon Dioxide 26
BUN 13
Creatinine 0.8
Glucose 90
Calcium 9.3
Vital Signs:
Vital Signs
Temp Pulse Resp BP Pulse Ox
97.9 F 74 16 147/63 96
07/19/25 07:15 07/19/25 07:15 07/19/25 07:15 07/19/25 07:15 07/19/25 07:15
I&O
07/18/25 07/19/25 07/20/25
06:59 06:59 06:59
Intake Total 480 / 480 1100 / 1100
Output Total 1800 / 1800 400 / 400
Balance -1320 / -1320 700 / 700
Review of Systems
-
History Source: Patient
All other systems: Reviewed and negative
Physical Exam
-
General: No Apparent Distress and Morbidly Obese
HEENT: Moist Mucous Membranes, Anicteric and PERRLA
Respiratory: Clear to Auscultation; Negative Wheezes, Rales or Rhonchi
Cardiac: Regular Rhythm and S1/S2; Negative Murmur, Rub or Gallop
GI: Soft, Nontender, Nondistended and Normal Bowel Sounds
Musculoskeletal: No Edema
Skin: Warm and Dry; Negative Rash, Ulcers or Lesions
Neuro: Awake, AO x 3 and Other (Strength 2/5 of BLE. Otherwise nonfocal exam)
Hematologic / Lymphatic: No Lymphadenopathy
Psych: Calm
Data Reviewed
-
MRI: Report Reviewed by me, Discussed with Physician and Discussed with Patient
Labs: Labs Reviewed by me and Discussed with Patient
--- NOTE | 2025-07-19 13:59 | CM ---
Addendum entered by Chioma Berry 07/19/25 15:03:
Authorization approved starting today, 07/19/25 to 07/25/25 (open until 2PM)
For Concurrent Review, must call Post Acute Team @ [phone]; Option 5
Authorization # [id number]
Plan: [facility] today
Report # [phone]
Original Note:
Per Attending, patient is stable for discharge today; [facility] notified and can accept patient
Plan: Discharge to [facility] today
Report # [phone]
[2025-07-19 15:10] VITALS: BP 114/64
== END 2025-07-19 17:36 | DRG 59 ==
LOC: 2 NORTH 19:01
PROVIDERS: Registered Nurse; ADMITTING PHYSICIAN Internal Medicine; ATTENDING PHYSICIAN Internal Medicine; CONSULT PHYSICIAN Psychiatry & Neurology Neurology; EMERGENCY PHYSICIAN Emergency Medicine; FAMILY PHYSICIAN Family Medicine
DX: G35.C0 Secondary progressive multiple sclerosis, unspecified (principal); Z68.43 Body mass index [BMI] 50.0-59.9, adult; D64.9 Anemia, unspecified; I10 Essential (primary) hypertension; G62.9 Polyneuropathy, unspecified; E04.1 Nontoxic single thyroid nodule; N32.81 Overactive bladder; M48.00 Spinal stenosis, site unspecified; R25.2 Cramp and spasm; E66.01 Morbid (severe) obesity due to excess calories; R73.03 Prediabetes; N31.9 Neuromuscular dysfunction of bladder, unspecified; R13.10 Dysphagia, unspecified; E86.0 Dehydration; Z88.5 Allergy status to narcotic agent; Z87.440 Personal history of urinary (tract) infections
CPT/HCPCS: 70553; 72157; 80048; 80053; 81003; 81015; 82306; 82607; 82728; 82746; 83540; 83550; 84443; 85025; 85027; 87086; 92526; 92610; 93005; 96374; 97163; 97167; 99285; A9575